=== PATIENT | female | born 1965 | race Caucasian/White ===

== ENCOUNTER 2016-06-05 12:58 | Emergency (ER) | payer BC ==
[~2016-06-05] VITALS: Ht 160 cm; Wt 87.8 kg
[~2016-06-05 12:58] MED LIST: BUPR200T2 PO; CLON1TAB3 PO; CYAN10005 PO; DILT300C29 PO; HYDR-3124 PO; HYDR1TAB2 PO; POLY335040 PO; SIMV40TA2 PO
[2016-06-05 13:10] VITALS: TEMP 36.8; Ht 160 cm; Wt 87.8 kg
--- NOTE | 2016-06-05 14:16 | EMERGENCY ROOM VISIT NOTE ---
History Report prepared by Karolina: Demian Aviles Under the Supervision of: Dr. Garry Fortune D.O. First contact with patient: 14:14 Chief Complaint: OTHER COMPLAINT Stated Complaint: POSSIBLY HAVE MRSA History of Present Illness The patient is a 51 year old female who presents to the Emergency Room with complaints of a worsening rash on the back of her neck for the past month. The patient states that she had this rash, and she kept scratching, and it became more like lesions. The patient additionally states that her ear has been swollen and red, and she states that there has been some drainage. She states there has been some blood coming from the lesions, and she states that there are more lumps on her head, and they hurt to touch. She states that she started taking Bactrim two days ago, and she is on it for ten days. Source of History: patient Onset: a month ago Position: neck Quality: other (rash) Timing: worsening Note: Associated symptoms: Lesions Review of Systems See HPI for pertinent positives & negatives. A total of 10 systems reviewed and were otherwise negative. Past Medical & Surgical Medical Problems: (1) Hyperlipemia Social History Smoking Status: Never Smoker Marital Status: Housing Status: lives with family Occupation Status: disabled Current/Historical Medications Scheduled Aspirin (Aspirin Ec), 81 MG PO QAM Atorvastatin (Lipitor), 80 MG PO HS Carbamazepine (Carbamazepine), 200 MG PO TID Cefdinir (Omnicef), 300 MG PO Q12H Docusate Sodium (Stool Softener), 100 MG PO BID Duloxetine Hcl (Cymbalta), 120 MG PO HS Gabapentin (Neurontin), 300 MG PO TID Lisinopril/Hctz (Zestoretic 20MG/25MG), 1 TAB PO QAM Melatonin (Melatonin), 10 MG PO HS Metformin Hcl (Glucophage Er), 750 MG PO BID Metoprolol Succinate (Toprol Xl), 50 MG PO QAM Mupirocin (Bactroban 2% Oint), 1 APPLN EXT BID Ropinirole (Requip), 3 MG PO QPM Senna (Senokot), 2 TAB PO HS Sulfa/Trimethoprim (Bactrim Ds 800MG/160MG), 1 TAB PO BID Temazepam (Restoril), 30 MG PO HS Scheduled PRN Black Cohosh (Cimicifuga Racem (Black Cohosh Root), 450 MG PO TID PRN for PRN Hydrocortisone 2.5% (Rectal) (Anusol-Hc 2.5%), 1 APPLN TOP BID PRN for PRN Allergies Coded Allergies: Amoxicillin (Unverified Allergy, Unknown, UNKNOWN, 06/05/16) Clavulanic Acid (Unverified Allergy, Unknown, UNKNOWN, 06/05/16) Diclofenac (Unverified Allergy, Unknown, UNKNOWN, 06/05/16) Duloxetine (Unverified Allergy, Unknown, UNKNOWN, 06/05/16) Gabapentin (Unverified Allergy, Unknown, UNKNOWN, 06/05/16) Pregabalin (Unverified Allergy, Unknown, UNKNOWN, 06/05/16) Quetiapine (Unverified Allergy, Unknown, UNKNOWN, 06/05/16) Trazodone (Unverified Allergy, Unknown, UNKNOWN, 06/05/16) Lorazepam (Verified Adverse Reaction, Unknown, AGITATION, 06/05/16) Physical Exam Vital Signs Date Time Temp Pulse Resp B/P Pulse Ox O2 Delivery O2 Flow Rate FiO2 06/05/16 16:06 68 18 122/72 98 06/05/16 14:49 83 18 129/67 93 Room Air 06/05/16 13:10 36.8 91 16 124/78 95 Room Air Physical Exam GENERAL: Patient is awake, alert, and in no acute distress. Patient is resting comfortably and showing no signs of anxiety EYES: The conjunctivae are clear. The pupils are round and reactive. EARS, NOSE, MOUTH AND THROAT: There was significant erythema and swelling in the right outer ear. There was mild desquamation over the lateral right ear. TMs were clear bilaterally. There were small lesions on the scalp in diffuse areas. No fluctuance noted. NECK: The neck is nontender and supple. RESPIRATORY: Normal respiratory effort is noted there is no evidence of wheezing rhonchi or rales CARDIOVASCULAR: Regular rate and rhythm noted there no murmurs rubs or gallops normal S1 normal S2 GASTROINTESTINAL: The abdomen is soft. Bowel sounds are present in all quadrants. Abdomen is nontender MUSCULOSKELETAL/EXTREMITIES: There is no evidence of gross deformity full range of motion is noted in the hips and shoulders SKIN: Pedal edema bilaterally NEUROLOGIC: Patient is awake alert and oriented x3 Medical Decision & Procedures Laboratory Results 06/05/16 14:35 Red Blood Count 5.01, Mean Corpuscular Volume 81.0, Mean Corpuscular Hemoglobin 29.5, Mean Corpuscular Hemoglobin Concent 36.5, Mean Platelet Volume 10.1, Neutrophils (%) (Auto) 67.8, Lymphocytes (%) (Auto) 21.1, Monocytes (%) (Auto) 8.9, Eosinophils (%) (Auto) 1.6, Basophils (%) (Auto) 0.2, Neutrophils # (Auto) 8.17, Lymphocytes # (Auto) 2.55, Monocytes # (Auto) 1.08, Eosinophils # (Auto) 0.19, Basophils # (Auto) 0.03 06/05/16 14:35 Test 06/05/16 14:35 White Blood Count 12.07 K/uL (4.8-10.8) Red Blood Count 5.01 M/uL (4.2-5.4) Hemoglobin 14.8 g/dL (12.0-16.0) Hematocrit 40.6 % (37-47) Mean Corpuscular Volume 81.0 fL (80-100) Mean Corpuscular Hemoglobin 29.5 pg (25-34) Mean Corpuscular Hemoglobin Concent 36.5 g/dl (32-36) Platelet Count 353 K/uL (130-400) Mean Platelet Volume 10.1 fL (7.4-10.4) Neutrophils (%) (Auto) 67.8 % Lymphocytes (%) (Auto) 21.1 % Monocytes (%) (Auto) 8.9 % Eosinophils (%) (Auto) 1.6 % Basophils (%) (Auto) 0.2 % Neutrophils # (Auto) 8.17 K/uL (1.4-6.5) Lymphocytes # (Auto) 2.55 K/uL (1.2-3.4) Monocytes # (Auto) 1.08 K/uL (0.11-0.59) Eosinophils # (Auto) 0.19 K/uL (0-0.5) Basophils # (Auto) 0.03 K/uL (0-0.2) RDW Standard Deviation 38.0 fL (36.4-46.3) RDW Coefficient of Variation 12.7 % (11.5-14.5) Immature Granulocyte % (Auto) 0.4 % Immature Granulocyte # (Auto) 0.05 K/uL (0.00-0.02) Erythrocyte Sedimentation Rate 44 mm/hr (0-21) Anion Gap 10.0 mmol/L (3-11) Est Creatinine Clear Calc Drug Dose 76.8 ml/min Estimated GFR () 85.8 Estimated GFR (Non- 74.0 BUN/Creatinine Ratio 16.8 (10-20) Calcium Level 9.8 mg/dl (8.5-10.1) Total Bilirubin 0.2 mg/dl (0.2-1) Direct Bilirubin < 0.1 mg/dl (0-0.2) Aspartate Amino Transf (AST/SGOT) 47 U/L (15-37) Alanine Aminotransferase (ALT/SGPT) 55 U/L (12-78) Alkaline Phosphatase 100 U/L (45-117) C-Reactive Protein 13.90 mg/dl (0-0.29) Total Protein 7.9 gm/dl (6.4-8.2) Albumin 3.4 gm/dl (3.4-5.0) Laboratory results per my review. Medications Administered Medications (Trade) Dose Ordered Sig/Raghavendra Route Start Time Stop Time Status Last Admin Dose Admin Sodium Chloride (Nss 1000ml) 1,000 ml @ 999 mls/hr Q1H1M STAT IV 06/05/16 14:21 06/05/16 15:21 DC 06/05/16 14:48 999 MLS/HR Ceftriaxone Sodium (Rocephin Inj) 1 gm NOW STAT IV 06/05/16 14:21 06/05/16 14:23 DC 06/05/16 14:48 1 GM ED Course 1414: The patient was evaluated in room A7. A complete history and physical examination were performed. 1421: Rocephin Inj 1gm IV, NSS 1,000 ml @ 999 mls/hr IV 1548: Upon reevaluation, the patient is resting. I discussed the results and treatment plan with her. She verbalized agreement of the treatment plan. She was discharged home. Medical Decision Differential diagnosis: Etiologies such as cellulitis, abscess, MRSA infection, DVT, necrotizing fasciitis, dermatitis, drug eruption, as well as others were entertained. Nursing notes reviewed. The patient is a 51-year-old female who presented to the emergency department for an evaluation of rash on her scalp and redness to her right ear. The patient was started on antibiotics for similar complaints. Her primary care physician did not feel that this was associated with a shingles rash and I agree with that assessment. The patient has had a rash for greater than 72 hours so I do not feel adding antivirals would be helpful at this time. She does appear to have significant erythema to the right ear. She was encouraged to continue using the Bactrim. She was also encouraged to start taking Omnicef and Bactroban ointment. I do feel this appears to be consistent with cellulitis at this time. Her white blood cell count was elevated. I discussed the patient' s laboratory results with her. I do feel that she could be a good candidate for continued outpatient therapy at this time but she was encouraged to follow-up with her primary care physician within the next few days for reevaluation but also return to the emergency department immediately if symptoms change worsen or the need arises. Specifically if she develops high fever severe pain worsening of the redness or if need arises. Impression Primary Impression: Cellulitis of right ear Scribe Attestation The scribe's documentation has been prepared under my direction and personally reviewed by me in its entirety. I confirm that the note above accurately reflects all work, treatment, procedures, and medical decision making performed by me. Departure Information Dispostion Home / Self-Care Prescriptions Cefdinir (Omnicef) 300 Mg Cap 300 MG PO Q12H, #20 CAP Prov: Garry Fortune, DO 06/05/16 Mupirocin (Bactroban 2% Oint) 66 Appln/22 Gm Oint 1 APPLN EXT BID, #60 GM Prov: Garry Fortune, DO 06/05/16 Referrals Sanjeev Baig M.D. (PCP) Forms HOME CARE DOCUMENTATION FORM, IMPORTANT VISIT INFORMATION, WORK / SCHOOL INSTRUCTIONS Patient Instructions Cellulitis Dc, My [facility] Additional Instructions Call your family to schedule a follow-up appointment for this week. Continue all medications as prescribed. Continue using Motrin and Tylenol as directed for mild pain.
[2016-06-05] MEDS ORDERED: SODIUM CHLORIDE 0.9% 1000ML 1,000 ML IV STA (14:21)
[2016-06-05] MEDS ORDERED: CEFTRIAXONE SOD INJ 1 GM ADDVIAL IV STA (14:21)
[2016-06-05 14:52] LABS: BASO % 0.2 %; BASO ABS # 0.03 K/uL (0-0.2); COMPLETE YES; EOS % 1.6 %; HEMATOCRIT 40.6 % (37-47); IG% 0.4 %; LYMPH % 21.1 %; LYMPH ABS # 2.55 K/uL (1.2-3.4); MEAN CORPUSCULAR HEMOGLOBIN 29.5 pg (25-34); MEAN CORPUSCULAR HGB CONC 36.5 g/dl (32-36); MEAN PLATELET VOLUME 10.1 fL (7.4-10.4); MONO % 8.9 %; NEUT % 67.8 %; PLATELET COUNT 353 K/uL (130-400); RED BLOOD COUNT 5.01 M/uL (4.2-5.4); WHITE BLOOD COUNT 12.07 K/uL (4.8-10.8)
[2016-06-05 15:19] LABS: ALKALINE PHOSPHATASE 100 U/L (45-117); ALT/SGPT 55 U/L (12-78); AST/SGOT 47 U/L (15-37); BLOOD UREA NITROGEN 15 mg/dl (7-18); BUN/CREATININE RATIO 16.8 (10-20); CALCIUM 9.8 mg/dl (8.5-10.1); CARBON DIOXIDE 27 mmol/L (21-32); CHLORIDE 95 mmol/L (98-107); CREATININE 0.89 mg/dl (0.60-1.20); GLUCOSE 93 mg/dl (70-99); SODIUM 132 mmol/L (136-145)
[2016-06-05] MEDS ORDERED: TGR200 PO (15:43)
[2016-06-05] MEDS ORDERED: [UNRECOGNIZED DRUG - CODE] PO (15:43)
[2016-06-05] MEDS ORDERED: SULF800T23 PO (15:43)
[2016-06-05] MEDS ORDERED: DULO60CA44 PO (15:43)
[2016-06-05] MEDS ORDERED: MELA1TAB48 PO (15:43)
[2016-06-05] MEDS ORDERED: SENN-61 PO (15:43)
[2016-06-05] MEDS ORDERED: ASPI81TA28 PO (15:43)
[2016-06-05] MEDS ORDERED: METO-217 PO (15:43)
[2016-06-05] MEDS ORDERED: DOCU100T7 PO (15:43)
[2016-06-05] MEDS ORDERED: LISI-788 PO (15:43)
[2016-06-05] MEDS ORDERED: TEMA30CA4 PO (15:43)
[2016-06-05] MEDS ORDERED: ROPI3TAB PO (15:43)
[2016-06-05] MEDS ORDERED: METF750T PO (15:43)
[2016-06-05] MEDS ORDERED: HYDR2.5C37 TOP (15:43)
[2016-06-05] MEDS ORDERED: GABA-113 PO (15:43)
[2016-06-05] MEDS ORDERED: ATOR-26 PO (15:43)
[2016-06-05] MEDS ORDERED: BCTROWC EXT (15:46)
[2016-06-05] MEDS ORDERED: CEFD1CAP14 PO (15:46)
[2016-06-05 16:06] VITALS: BP 122/72; PULSE 68; O2SAT 98
== END 2016-06-05 16:09 | disposition home or self-care (01) ==
LOC: C.EDB 13:00 → C.EDA 16:09
DX: H60.11 Cellulitis of right external ear (principal); E78.5 Hyperlipidemia, unspecified; Z79.82 Long term (current) use of aspirin; Z79.84 Long term (current) use of oral hypoglycemic drugs; Z79.899 Other long term (current) drug therapy; Z88.1 Allergy status to other antibiotic agents; Z88.8 Allergy status to other drugs, medicaments and biological substances

== ENCOUNTER → 2016-06-07 | Outpatient (CLI) | payer BC ==
[~2016-06-07] MED LIST changes: +ASPI81TA28 PO; +ATOR-26 PO; +BCTROWC EXT; -BUPR200T2 PO; +CEFD1CAP14 PO; -CLON1TAB3 PO; -CYAN10005 PO; -DILT300C29 PO; +DOCU100T7 PO; +DULO60CA44 PO; +GABA-113 PO; -HYDR-3124 PO; -HYDR1TAB2 PO; +HYDR2.5C37 TOP; +LISI-788 PO; +MELA1TAB48 PO; +METF750T PO; +METO-217 PO; -POLY335040 PO; +ROPI3TAB PO; +SENN-61 PO; -SIMV40TA2 PO; +SULF800T23 PO; +TEMA30CA4 PO; +TGR200 PO; +[UNRECOGNIZED DRUG - CODE] PO
[2016-06-07 18:22] LABS: URINE APPEARANCE CLEAR (CLEAR); URINE BILIRUBIN NEG (NEG); URINE COLOR YELLOW; URINE EPITHELIAL CELL AUTO >30 /lpf (0-5); URINE NITRITE NEG (NEG); URINE PH 6.5 (4.5-7.5); URINE SPECIFIC GRAVITY 1.014 (1.000-1.030); UROBILINOGEN NEG (NEG); ZZUR CULT IF INDIC CLEAN CATCH NO
[2016-06-07 18:24] LABS: HEMATOCRIT 41.4 % (37-47); MEAN CELL VOLUME 82.8 fL (80-100); MEAN CORPUSCULAR HEMOGLOBIN 28.6 pg (25-34); MEAN CORPUSCULAR HGB CONC 34.5 g/dl (32-36); MEAN PLATELET VOLUME 10.6 fL (7.4-10.4); PLATELET COUNT 423 K/uL (130-400); WHITE BLOOD COUNT 10.78 K/uL (4.8-10.8)
[2016-06-07 18:30] LABS: MANUAL MICROSCOPIC REQUIRED? NO; REVIEW REQ? NO
== END | disposition home or self-care (01) ==
LOC: C.LABMFLN 13:41
PROVIDERS: ATTEND Family Medicine
DX: F31.9 Bipolar disorder, unspecified (principal); E87.6 Hypokalemia; R35.0 Frequency of micturition

== ENCOUNTER → 2016-06-17 | Outpatient (CLI) | payer BC ==
[2016-06-17 18:51] LABS: BASO % 0.3 %; BASO ABS # 0.04 K/uL (0-0.2); COMPLETE YES; EOS % 1.2 %; HEMATOCRIT 43.7 % (37-47); IG% 0.4 %; LYMPH % 21.7 %; LYMPH ABS # 3.13 K/uL (1.2-3.4); MEAN CELL VOLUME 83.7 fL (80-100); MEAN CORPUSCULAR HEMOGLOBIN 28.9 pg (25-34); MEAN CORPUSCULAR HGB CONC 34.6 g/dl (32-36); MEAN PLATELET VOLUME 11.3 fL (7.4-10.4); MONO % 4.2 %; NEUT % 72.2 %; PLATELET COUNT 341 K/uL (130-400); RED BLOOD COUNT 5.22 M/uL (4.2-5.4); WHITE BLOOD COUNT 14.41 K/uL (4.8-10.8)
[2016-06-17 19:49] LABS: POTASSIUM 4.4 mmol/L (3.5-5.1); SODIUM 136 mmol/L (136-145)
[2016-06-17 19:54] LABS: AST/SGOT 16 U/L (15-37)
[2016-06-17 19:56] LABS: ALB/GLOB RATIO 1.1 (0.9-2); ALKALINE PHOSPHATASE 72 U/L (45-117); ALT/SGPT 31 U/L (12-78); AMYLASE 46 U/L (25-115); BLOOD UREA NITROGEN 14 mg/dl (7-18); BUN/CREATININE RATIO 18.3 (10-20); CALCIUM 9.2 mg/dl (8.5-10.1); CARBON DIOXIDE 26 mmol/L (21-32); CHLORIDE 98 mmol/L (98-107); CREATININE 0.79 mg/dl (0.60-1.20); GLUCOSE 111 mg/dl (70-99)
== END | disposition home or self-care (01) ==
LOC: C.LABMFLN 12:29
PROVIDERS: ATTEND Family Medicine
DX: K52.9 Noninfective gastroenteritis and colitis, unspecified (principal); K57.32 Diverticulitis of large intestine without perforation or abscess without bleeding

== ENCOUNTER → 2016-09-10 | Outpatient (CLI) | payer BC ==
[2016-09-10 13:21] LABS: URINE APPEARANCE CLEAR (CLEAR); URINE BILIRUBIN NEG (NEG); URINE COLOR YELLOW; URINE EPITHELIAL CELL AUTO >30 /lpf (0-5); URINE NITRITE NEG (NEG); URINE SPECIFIC GRAVITY 1.022 (1.000-1.030); UROBILINOGEN NEG (NEG)
[2016-09-10 13:22] LABS: MANUAL MICROSCOPIC REQUIRED? NO; REVIEW REQ? NO
[2016-09-10 13:26] LABS: BASO % 0.4 %; BASO ABS # 0.05 K/uL (0-0.2); COMPLETE YES; EOS % 3.7 %; HEMATOCRIT 46.4 % (37-47); IG% 0.4 %; LYMPH % 26.6 %; MEAN CELL VOLUME 88.5 fL (80-100); MEAN CORPUSCULAR HEMOGLOBIN 29.2 pg (25-34); MEAN PLATELET VOLUME 11.3 fL (7.4-10.4); MONO % 8.3 %; NEUT % 60.6 %; PLATELET COUNT 312 K/uL (130-400); RED BLOOD COUNT 5.24 M/uL (4.2-5.4); WHITE BLOOD COUNT 12.41 K/uL (4.8-10.8)
== END | disposition home or self-care (01) ==
LOC: C.LABMFLN 10:09
PROVIDERS: ATTEND Family Medicine
DX: K57.30 Diverticulosis of large intestine without perforation or abscess without bleeding (principal)

== ENCOUNTER → 2016-09-16 | Outpatient (CLI) | payer BC ==
[2016-09-16 18:20] LABS: THYROID STIMULATING HORMONE 2.72 uIu/ml (0.300-4.500)
== END | disposition home or self-care (01) ==
LOC: C.LABMFLN 11:49
PROVIDERS: ATTEND Family Medicine
DX: L65.9 Nonscarring hair loss, unspecified (principal)

== ENCOUNTER → 2017-06-25 | Outpatient (CLI) | payer BC ==
[~2017-06-25] MED LIST changes: -BCTROWC EXT; -CEFD1CAP14 PO
[2017-06-25 13:09] LABS: ALT/SGPT 69 U/L (12-78); BLOOD UREA NITROGEN 12 mg/dl (7-18); CALCIUM 9.3 mg/dl (8.5-10.1); CARBON DIOXIDE 28 mmol/L (21-32); CREATININE 0.83 mg/dl (0.60-1.20); GLUCOSE 152 mg/dl (70-99); POTASSIUM 4.2 mmol/L (3.5-5.1); SODIUM 135 mmol/L (136-145)
[2017-06-25 13:13] LABS: HEMOGLOBIN A1C 8.8 % (4.5-5.6)
[2017-06-25 13:14] LABS: CHOLESTEROL 193 mg/dl (0-200); LDL CHOLESTEROL (DIRECT) 119 mg/dl
[2017-06-25 13:30] LABS: CREATININE RANDOM URINE 78.4 mg/dl
== END | disposition home or self-care (01) ==
LOC: C.LABMFLN 09:41
PROVIDERS: ATTEND Family Medicine
DX: E78.5 Hyperlipidemia, unspecified (principal); I10 Essential (primary) hypertension; E11.9 Type 2 diabetes mellitus without complications

== ENCOUNTER 2024-12-06 06:20 | Inpatient (IN) ==
--- NOTE | 2024-11-08 12:40 | PAT Medication Instructions ---
Medication Instructions Date of Service November 08, 2024 Home Medications Medication Instructions Recorded blood sugar diagnostic #100 ea 05/01/21 blood sugar diagnostic (True #100 ea 12/07/21 Metrix Glucose Test Strip) carvedilol 12.5 mg tablet (Coreg) 12.5 mg PO BID #180 tabs 07/15/23 diltiazem HCl 300 mg 300 mg PO QAM #90 caps 07/15/23 capsule,extended release 24 hr (Cardizem CD) fenofibrate 160 mg tablet 160 mg PO QAM #90 tabs 07/15/23 alcohol swabs (Alcohol Prep Pads) 100 pad topical BID #100 ea 08/12/23 CPAP Supplies #1 ea 09/01/23 pregabalin 50 mg capsule (Lyrica) 50 mg PO BID #60 caps 10/22/23 semaglutide 1 mg/dose (4 mg/3 mL) 1 mg (0.75 mL) subcut .weekly #3 mL 11/27/23 subcutaneous pen injector (Ozempic) pen needle, diabetic 31 gauge x #100 ea 02/03/2408/27" (BD Ultra-Fine Short Pen Needle) Medication List: carvedilol 12.5 mg tablet (Coreg) 12.5 mg PO BID diltiazem HCl 300 mg capsule,extended release 24 hr (Cardizem CD) 300 mg PO QAM fenofibrate 160 mg tablet 160 mg PO QAM pramipexole 1 mg tablet 1 mg PO TID acetaminophen 325 mg tablet (Tylenol) 325 - 975 mg PO QID PRN Pain pregabalin 50 mg capsule (Lyrica) 50 mg PO BID semaglutide 1 mg/dose (4 mg/3 mL) subcutaneous pen injector (Ozempic) 1 mg (0.75 mL) subcut .weekly aspirin 81 mg tablet 81 mg PO QAM cetirizine 10 mg tablet (Zyrtec) 10 mg PO DAILY PRN Allergies duloxetine 40 mg capsule,delayed release 40 mg PO QAM insulin NPH-regular 70-30 U-100 insulin 100 unit/mL subcutaneous pen (Novolin 70-30 FlexPen U-100 Insulin) 70 unit subcut BID metformin 500 mg tablet,extended release 24 hr 100 mg PO BID polyethylene glycol 3350 17 gram/dose oral powder (Miralax) 17 g PO DAILY PRN Constipation quetiapine 50 mg tablet,extended release 24 hr 50 mg PO QAM rosuvastatin 40 mg tablet (Crestor) 40 mg PO QAM vitamin D3 125 mcg (5,000 unit)-vitamin K2 100 mcg capsule 1 cap PO QAM MEDICATION INSTRUCTIONS: ASK your prescriber and surgeon aspirin 81 mg tablet 81 mg PO QAM STOP taking 24 hours before surgery fenofibrate 160 mg tablet 160 mg PO QAM DO NOT take the morning of surgery metformin 500 mg tablet,extended release 24 hr 100 mg PO BID polyethylene glycol 3350 17 gram/dose oral powder (Miralax) 17 g PO DAILY PRN Constipation cetirizine 10 mg tablet (Zyrtec) 10 mg PO DAILY PRN Allergies vitamin D3 125 mcg (5,000 unit)-vitamin K2 100 mcg capsule 1 cap PO QAM Take morning of surgery With a small sip of water, OTHERWISE NOTHING TO EAT OR DRINK AFTER MIDNIGHT: pregabalin 50 mg capsule (Lyrica) 50 mg PO BID pramipexole 1 mg tablet 1 mg PO TID carvedilol 12.5 mg tablet (Coreg) 12.5 mg PO BID duloxetine 40 mg capsule,delayed release 40 mg PO QAM diltiazem HCl 300 mg capsule,extended release 24 hr (Cardizem CD) 300 mg PO QAM acetaminophen 325 mg tablet (Tylenol) 325 - 975 mg PO QID PRN Pain quetiapine 50 mg tablet,extended release 24 hr 50 mg PO QAM rosuvastatin 40 mg tablet (Crestor) 40 mg PO QAM Take evening before surgery pregabalin 50 mg capsule (Lyrica) 50 mg PO BID pramipexole 1 mg tablet 1 mg PO TID carvedilol 12.5 mg tablet (Coreg) 12.5 mg PO BID acetaminophen 325 mg tablet (Tylenol) 325 - 975 mg PO QID PRN Pain metformin 500 mg tablet,extended release 24 hr 100 mg PO BID insulin NPH-regular 70-30 U-100 insulin 100 unit/mL subcutaneous pen (Novolin 70-30 FlexPen U-100 Insulin) 70 unit subcut BID Insulin Dependent Diabetic Patients Test your blood sugar the morning of surgery * If Blood Sugar is GREATER THAN 150, take HALF of your regular dose of: insulin NPH-regular 70-30 U-100 insulin 100 unit/mL subcutaneous pen (Novolin 70-30 FlexPen U-100 Insulin) (35units) * If Blood Sugar is LESS THAN 150, DO NOT TAKE ANY: insulin NPH-regular 70-30 U- 100 insulin 100 unit/mL subcutaneous pen (Novolin 70-30 FlexPen U-100 Insulin) Other Notes As instructed during RN phone call, last dose prior to surgery to be taken on 11/23/24 of: semaglutide 1 mg/dose (4 mg/3 mL) subcutaneous pen injector (Ozempic) 1 mg (0.75 mL) subcut .weekly If you have any questions please call us at [phone] or [phone] or [phone] or [phone]
--- NOTE | 2024-11-15 10:56 | Anesthesiology Consultation ---
Date of Service November 15, 2024 Assessment & Plan (1) Encounter for pre-operative examination: - Check BSG DOS - Infectious disease screening: Per assessment on 11/15/24- No known recent infectious disease contacts or current infectious disease symptoms. - GLP-1 medication instructions: Patient informed by PAT to stop 7 days prior to surgery- voiced understanding. DOS 12/06. Advised last dose to be 11/23. - PCP visit (11/17/24): "Ok for surgery on exam, but pre op testing and labs not available at this time.." - Awaiting final PCP clearance (PCP awaiting preop testing; Dr. Bell/ISA Bowden). Patient otherwise acceptable risk for surgery. Chart Review Chart Review: Patient seen in Pre Admission Testing Teaching & Discussion Pre-Anesthesia Teaching/Discussion Notes: Instructed NPO after midnight before surgery,except medications with 15 cc of water. Medication instructions provided according to the PAT guidelines. History Surgery Operation Date: 12/06/24 07:45 Proposed Procedures p L1-L3 Decompression, T12-S1 Fusion, Hardware Removal L4-S1, with Spinal Cord Monitoring - David Lange, Height/Weight Height: 5 ft 3 in Weight: 107.7 kg Allergies Allergy/AdvReac Type Severity Reaction Status Date / Time capsaicin Allergy Unknown Unknown Verified 11/05/24 11:21 diclofenac Allergy Unknown Unknown Verified 11/05/24 11:21 Diclopak Allergy Unknown UNKNOWN Unverified 06/05/16 15:30 nitrofurantoin Allergy Unknown Unknown Verified 11/05/24 11:21 trazodone Allergy Unknown Unknown Verified 11/05/24 11:21 amitriptyline AdvReac Severe Hallucinations, Verified 11/05/24 11:22 Sleep Walking [facility] AdvReac Intermediate Pancreatiti Verified 11/09/24 14:01 s lisinopril AdvReac Intermediate Cough Verified 11/05/24 11:21 lorazepam AdvReac Intermediate Agitation Verified 11/05/24 11:21 augmentin Allergy Intermediate Hives Uncoded 11/05/24 11:21 Medications Home Medications Medication Instructions Recorded Confirmed Last Taken blood sugar diagnostic #100 ea 05/01/21 09/22/23 Unknown blood sugar diagnostic (True #100 ea 12/07/21 09/22/23 Unknown Metrix Glucose Test Strip) carvedilol 12.5 mg tablet (Coreg) 12.5 mg PO BID #180 tabs 07/15/23 11/05/24 Unknown diltiazem HCl 300 mg 300 mg PO QAM #90 caps 07/15/23 11/05/24 Unknown capsule,extended release 24 hr (Cardizem CD) fenofibrate 160 mg tablet 160 mg PO QAM #90 tabs 07/15/23 11/05/24 Unknown pramipexole 1 mg tablet 1 mg PO TID 07/29/23 11/05/24 Unknown alcohol swabs (Alcohol Prep Pads) 100 pad topical BID #100 ea 08/12/23 11/05/24 Unknown CPAP Supplies #1 ea 09/01/23 09/22/23 Unknown acetaminophen 325 mg tablet 325 - 975 mg PO QID PRN Pain 09/22/23 11/05/24 Unknown (Tylenol) pregabalin 50 mg capsule (Lyrica) 50 mg PO BID #60 caps 10/22/23 11/05/24 Unknown semaglutide 1 mg/dose (4 mg/3 mL) 1 mg (0.75 mL) subcut .weekly #3 mL 11/27/23 11/05/24 11/02/24 subcutaneous pen injector (Ozempic) pen needle, diabetic 31 gauge x #100 ea 02/03/24 Unknown 5/16" (BD Ultra-Fine Short Pen Needle) aspirin 81 mg tablet 81 mg PO QAM 11/05/24 11/05/24 Unknown cetirizine 10 mg tablet (Zyrtec) 10 mg PO DAILY PRN Allergies 11/05/24 11/05/24 Unknown duloxetine 40 mg capsule,delayed 40 mg PO QAM 11/05/24 11/05/24 Unknown release insulin NPH-regular 70-30 U-100 70 unit subcut BID 11/05/24 11/05/24 Unknown insulin 100 unit/mL subcutaneous pen (Novolin 70-30 FlexPen U-100 Insulin) metformin 500 mg tablet,extended 100 mg PO BID 11/05/24 11/05/24 Unknown release 24 hr polyethylene glycol 3350 17 17 g PO DAILY PRN Constipation 11/05/24 11/05/24 Unknown gram/dose oral powder (Miralax) quetiapine 50 mg tablet,extended 50 mg PO QAM 11/05/24 11/05/24 Unknown release 24 hr rosuvastatin 40 mg tablet (Crestor) 40 mg PO QAM 11/05/24 11/05/24 Unknown vitamin D3 125 mcg (5,000 1 cap PO QAM 11/05/24 11/05/24 Unknown unit)-vitamin K2 100 mcg capsule Past Medical History Medical History Acid reflux Asthma Per records, patient denies Bipolar depression Per records, patient denies Coronary artery spasm Diabetes mellitus, type 2 IDDM - Oral - Dexcom Diabetic neuropathy Bilateral Lower Extremity Diverticular disease No recent flares History of blood transfusion "18 years ago" History of COVID-19 12/2020- loss taste, headaches > resolved Hyperlipidemia Hypertension Hyperthyroidism Listed per remote [facility] PCP records Patient denies Iron deficiency anemia Morbid obesity Prinzmetal's angina Scalp psoriasis Sleep apnea CPAP Stroke 06/2019 [facility]) No residuals per patient Urine frequency Urine incontinence Exercise / Class Metabolic Activity III < 4 Walking/Shop/Light housework Past Family History Family History Uncle Myocardial infarction Colorectal cancer Father Myocardial infarction Lung disease Hypertension Stroke Mother Anxiety Bipolar disorder Diabetes Hypertension Sister Hypercholesterolemia Ruptured Burks aneurysm Aunt Breast cancer Denies family history of Ovarian cancer Prostate cancer Past Surgical History Surgical History H/O elbow surgery R/L H/O shoulder surgery Left arthroscopy History of bladder surgery urethral suspension for incontinence and botox injections History of cardiac cath "years ago" and 2021 - No stents History of carpal tunnel release Bilateral History of colonoscopy History of esophagogastroduodenoscopy (EGD) History of lumbar fusion 11/2012 Anisa L4-S1 fusion History of ovarian cystectomy History of salpingectomy History of tonsillectomy and adenoidectomy History of tooth extraction History of tubal ligation Past Anesthesia History No Hx of Anesthesia Complications and No Family Hx of Anesthesia Complications (except granddaughter with post-op nausea) History of PONV No Hx of PONV and Hx of Motion Sickness (Situational) Social History Smoking Status: Former smoker tobacco type: cigarettes Do You Dip or Chew Tobacco: No Smoking End Date: Quit 3 years Hx Alcohol Use: No Hx Substance Use: No substance use type: does not use Review of Systems Patient denies chest pain, shortness of breath, fever, chills, cough, wheezing, palpitations. Physical Exam Vital Signs BP 97/66 P 55 SP02 95%RA RESP 18 Physical Full cervical extension range of motion. Full TMJ range of motion. TMD > 3.5 finger breaths Mallampati Score III Dentition: intact, upper front right permanent "false tooth" Lungs: clear throughout to auscultation Cardiac: regular rate and rhythm, no murmurs noted Spine: normal Carotid arteries: negative bruit Extremities: no LE edema Lab Results Anesthesia Preop Results Results Anesthesia Widget: WBC 9.17 K/ul (4.8-10.8) 11/15/24 Hgb 14.6 g/dl (12.0-16.0) 11/15/24 Hct 44.1 % (37.0-47.0) 11/15/24 Plt 287 K/uL (130-400) 11/15/24 Na 135 mmol/L (136-145) L 11/15/24 K 4.5 mmol/L (3.5-5.1) 11/15/24 Cl 98 mmol/L (98-107) 11/15/24 CO2 32 mmol/L (21-32) 11/15/24 BUN 22 mg/dl (6-23) 11/15/24 Creat 1.13 mg/dl (0.6-1.2) 11/15/24 Glucose Level 76 mg/dl (70-99(Fasting)) 11/15/24 PT 11.4 Seconds (9.0-12.0) 11/15/24 PTT 33 Seconds (21-31) H 11/15/24 INR 1.1 (0.9-1.1) 11/15/24 HA1c 6.8 % (4.5-5.6) H 11/15/24 Urine Color Yellow 11/15/24 Urine Appearance Clear (Clear) 11/15/24 Urine pH 7.0 (4.5-7.5) 11/15/24 Urine Specific [place] 1.016 (1.000-1.030) 11/15/24 Urine Protein 2+ (Negative) H 11/15/24 Urine Glucose (UA) Negative (Negative) 11/15/24 Urine Ketones Negative (Negative) 11/15/24 Urine Blood Negative (Negative) 11/15/24 Urine Nitrite Negative (Negative) 11/15/24 Urine Bilirubin Negative (Negative) 11/15/24 Urine Urobilinogen Negative (Negative) 11/15/24 Urine Leukocyte Esterase 2+ (Negative) H 11/15/24 Urine WBC (Auto) >50 /hpf (0-5) H 11/15/24 Urine RBC (Auto) 0-2 /hpf (0-2) 11/15/24 Urine Hyaline Casts (Auto) 0-2 /lpf (0-2) 11/15/24 Urine Epithelial Cells (Auto) 6-10 /hpf (0-2) H 11/15/24 Urine Bacteria (Auto) 4+ (None Seen) H 11/15/24 Blood Type O Positive 11/15/24 Antibody Screen NEGATIVE 11/15/24 Testing Laboratory Results Surgeon's office made aware of abnormal UA* TSH (05/14/24): 1.99 (WNL) Urine culture (11/15/24): pending Electrocardiogram Date: 11/15/24 SB at 56bpm. "Otherwise normal ECG" Chest X-Ray Date: 11/15/24 Heart: Cardiothoracic ratio is borderline. Needs Echo correlation if clinically indicated. (Echo was done 09/2023; preop testing including CXR forwarded to PCP) IMPRESSION: No acute pleuropulmonary pathology seen. Echocardiogram Date: 09/19/23 LVEF 55-59%. No LV segmental wall motion abnormalities. No significant valvular disease present. Mildly increased (concentric) wall thickness. Stress Test Date: 05/11/21 Moderate perfusion defect in the anterior wall that is slightly worse at stress. Possible attenuation artifact but jovanny-infarct/infarct ischemia cannot be ruled out. LVEF 60%. Subsequent cardiac cath performed* Cardiac Catheterization Date: 05/23/21 Coronary angiography: Selective injections of the left coronary artery revealed the left main trunk to be short but widely patent. The left circumflex artery is hyperdominant giving off several marginal branches as well as the PDA. The left circumflex system is widely patent. The LAD extends only to the apex of the heart. The LAD gives off several small to medium size diagonal branches. The LAD system is widely patent. Injections into the right coronary artery reveal it to be small and nondominant. The right coronary artery is widely patent. Summary: The patient has widely patent coronary anatomy.
[2024-12-06] MEDS: LR 60ML/HR IV SCH (06:49)
[2024-12-06] MEDS: LR 15ML/HR IV SCH (06:49)
[2024-12-06] MEDS: ACETAMINOPHEN 500 MG TAB PO SCH (06:50)
[2024-12-06] MEDS: GABAPENTIN 600 MG DOSE PO SCH (06:50)
[2024-12-06] MEDS: CeleBREX 200 MG CAP PO SCH (07:11)
[2024-12-06] MEDS ORDERED: GLYCOPYRROLATE 0.2 MG/ML VIAL ONE (07:23)
[2024-12-06] MEDS ORDERED: ROCURONIUM BROMIDE 10 MG/ML 5 ML VIAL IV ONE (07:23)
[2024-12-06] MEDS ORDERED: ONDANSETRON INJ 2 MG/ML 2 ML VIAL ONE (07:23)
[2024-12-06] MEDS ORDERED: PROPOFOL IV EMULSION 10 MG/ML 20 ML VIAL IV ONE (07:23)
[2024-12-06] MEDS ORDERED: MIDAZOLAM HCL 1 MG/ML 2ML VIAL ONE (07:23)
[2024-12-06] MEDS ORDERED: LIDOCAINE 2% 2 ML VIAL/AMP(20MG/ML) INFIL ONE (07:23)
[2024-12-06] MEDS ORDERED: DEXAMETHASONE SOD INJ 4 MG/ML VIAL ONE (07:23)
[2024-12-06] MEDS ORDERED: SUGAMMADEX SODIUM 200 MG/2 ML VIAL IV ONE (07:25)
[2024-12-06] MEDS ORDERED: KETAMINE HCL 10MG/ML SYR ONE (07:29)
[2024-12-06] MEDS ORDERED: PROMETHAZINE HCL 6.25 MG in SODIUM CHLORIDE 0.9% 50 ML IV PRN (07:35)
[2024-12-06] MEDS ORDERED: HYDROmorphone INJ 1 MG/ML SYRINGE IV PRN (07:35)
[2024-12-06] MEDS ORDERED: ONDANSETRON INJ 2 MG/ML 2 ML VIAL IV PRN ×2 (07:35→12:55)
[2024-12-06] MEDS ORDERED: ATROPINE SULFATE 0.1 MG/ML 10ML SYR IV PRN (07:35)
[2024-12-06] MEDS ORDERED: NALOXONE HCL 0.4 MG/1 ML VIAL/CARP IV PRN ×2 (07:35→12:55)
[2024-12-06] MEDS ORDERED: FLUMAZENIL 0.1 MG/1 ML 10 ML VIAL IV PRN (07:35)
--- NOTE | 2024-12-06 07:41 | History & Physical Bridge Note ---
Date of Service December 06, 2024 History & Physical Bridge Note I have examined the patient, reviewed the History & Physical and in the interval since the performance of the History & Physical I have noted the following changes of clinical significance: no changes noted
--- NOTE | 2024-12-06 07:42 | Orthopedic Progress Note ---
Date of Service December 06, 2024 Assessment & Plan (1) Other spondylosis with radiculopathy, lumbar region: Plan: L1-L3 decompression, T12-S1 fusion, hardware removal L4-S1 Subjective Back and leg pain Physical Exam Physical Exam: Patient is alert and oriented heart regular rhythm Lungs clear Results & Data Vital Signs (Past 12 Hours) Vital Signs Temp Pulse Resp BP Pulse Ox O2 Del Method 12/06/24 06:38 36.5 C 83 16 125/84 94 Room Air
[2024-12-06] MEDS: BUPIVACAINE/EPINEPHRINE 0.25% 1:200,000 30 ML VIAL ONE (08:21)
[2024-12-06] MEDS ORDERED: VASOPRESSIN 20 UNIT/ML VIAL ONE (08:54)
[2024-12-06] MEDS ORDERED: ALBUMIN HUMAN 5% 12.5 GM/250 ML VIAL IV ONE (09:14)
[2024-12-06] MEDS ORDERED: NOREPINEPHRINE BITARTRATE 1 MG/ML 4 ML VIAL IV ONE (09:19)
[2024-12-06] MEDS: ceFAZolin 330 MG/ML 1 GM VIAL ONE ×2 (09:44→10:23)
[2024-12-06] MEDS: FLOSEAL HEMOSTATIC MATRIX 10ML TOP ONE (10:22)
--- NOTE | 2024-12-06 10:37 | Operative Report ---
Post Operative Report Pre & Post Diagnosis Operation Date: 12/06/24 07:45 Pre-Op Diagnosis: #1 lumbar spondylosis with radiculopathy #2 lumbar spinal stenosis with epidural lipomatosis Post-Op Diagnosis: Same I identified the patient and participated in the time-out.: Yes Procedure Operation Date: 12/06/24 07:45 Actual Procedures #1 removal of posterior instrumentation L4-S1. #2 exploration of fusion L4-S1. #3 lumbar decompression with bilateral medial facetectomies and foraminotomies T12-L1, L1-L2, L2-L3 and L3-L4. #4 posterior spinal fusion T12-L4. #5 placed posterior segmental instrumentation T12-S1 using camber. #6 interbody fusion L3-L4. #7 placement spiraling by 26 mm at L3-L4. #8 placement locally harvested morselized autograft and posterior gutters. #9 placement of Koros combined with Proteus in the posterior lateral gutters and os design interbody space. #10 application of versa wrap of the exposed dura. Surgeon David Lange, DO Theater Set Production Designer Carito Dickinson Estimated Blood Loss 550 Findings See Below The patient is 5 foot 3 weighing over 108 kg with a BMI in excess of 42. The patient's body image did contribute to significant technical difficulty with positioning exposure and the procedure itself. This at least 50% increased operative time. I recommend a modifier 22. Specimens None Indications This is a 59-year-old female who presents from his diagnosis after failing course of nonoperative care is here for surgical invention. Description of Procedure Patient was met with identified informed consent obtained. Patient was then taken to the operative suite underwent intubation placed in the prone position on the Steve table on top of the Stalin frame. All bony prominences well- padded eyes inspected to ensure no external pressure placed upon them. This point the lumbar spine was prepped and draped in normal sterile fashion. Sharp dissection with the assistance of Bovie cautery was performed down to and exposing the lamina transverse processes of T12 L1-L2-L3 and the instrumentation L4-L5 and S1 levels bilaterally. And then proceeded to remove the hardware bilaterally explored the fusion mass noting it to be mature and intact. Then performed a complete laminectomy of L3 L2 L1 and partial laminectomy of T12 including bilateral medial facetectomies and foraminotomies addressing all neural compression. Pedicle screws were then placed in T12-L1 L2-L3-L4 and the S1 levels bilaterally with the assistance of fluoroscopy and appropriate sized rods contoured and placed. By way of transforaminal approach on the left a complete discectomy of L3-L4 was performed endplates guided to subcortically bone and 11 x 26 mm spiral cage filled with os design bone graft tapped in position. The rods were then locked in 5 position. The transverse processes of T12-L1 L2-L3-L4 burred to subcortical being bone. Proteus combined with Koros and local autograft placed in posterior gutters. Versa wrap placed of exposed dura. 15 round THUY drain inserted. The incision was then closed with 1 Vicryl the fascia 2-0 Vicryl subcutaneously and 4 Monocryl for final skin closure. Steri-Strips sterile dressing placed. Patient waken taken to PACU in stable condition. Please note Carito Dickinson was present entire procedure and on the patient positioning complex portion of the surgery and final skin closure. I attest to the content of the Intraoperative Record and any orders documented therein. Any exceptions are noted below.
--- NOTE | 2024-12-06 10:50 | Fluoroscopy Report ---
FL lumbar spine 2-3V CLINICAL HISTORY: L1-L3 DECOMP T12-S1 FUSION COMPARISON STUDY: Radiographs 11/25/2012 FLUOROSCOPY TIME: 30.3 seconds FLUOROSCOPY IMAGES: 3 EXPOSURE DOSE: 28.37 mGy FINDINGS: Posterior interbody avelina and screw fusion hardware is noted at what appears to be the T12-S1 levels. Discectomy changes are noted at what appears to be the L3-L4 and L5-S1 levels. Interval da grey of the L5 pedicle screws. Hardware appears intact. Possible surgical sponge on image 4 adjacent t o the T12 hardware. A catheter projects over the right abdomen. Note that the images were submitted f ollowing completion of the surgery. IMPRESSION: Fluoroscopic assistance as above. ACT 112: Negative or not required by law. Electronically signed by: Nixon Begum M.D. 12/06/2024 10:49 AM
[2024-12-06] MEDS ORDERED: METHYLENE BLUE 0.5% 10 ML VIAL ONE (11:06)
--- NOTE | 2024-12-06 12:26 | Anesthesiology Progress Note ---
Date of Service December 06, 2024 Anesthesia Post Procedure Vital Signs Vital Signs: Temp Pulse Resp BP Pulse Ox O2 Del Method O2 Flow Rate 12/06/24 12:20 82 20 101/56 L 96 Nasal Cannula 2 12/06/24 12:10 83 17 90/57 L 94 Nasal Cannula 2 12/06/24 12:00 36.5 C 87 16 92/58 L 97 Nasal Cannula 2 12/06/24 11:50 86 14 95/51 L 97 Nasal Cannula 2 12/06/24 11:40 87 17 103/57 L 94 Nasal Cannula 2 12/06/24 11:30 90 18 106/56 L 98 Oxymask 6 12/06/24 11:20 89 24 98/63 L 97 Oxymask 9 12/06/24 11:10 86 20 90/67 L 94 Oxymask 9 12/06/24 11:00 87 20 94/62 L 92 Oxymask 10 12/06/24 10:55 67 18 84/47 L 90 Oxymask 10 12/06/24 10:54 36.2 C L 65 18 78/48 L 89 L Oxymask 10 12/06/24 06:38 36.5 C 83 16 125/84 94 Room Air Pain Intensity Back: Pain Intensity: 6 Transfer of Care Handoff Completed per policy Notes Mental Status: alert / awake / arousable Patient Amnestic to Procedure: Yes Nausea / Vomiting: adequately controlled Pain: adequately controlled Airway Patency, RR, SpO2: stable & adequate BP & HR: stable & adequate Hydration State: stable & adequate Anesthetic Complications: no major complications apparent
[2024-12-06] MEDS ORDERED: METOCLOPRAMIDE HCL INJ 5 MG/ML 2 ML VIAL IV PRN (12:55)
[2024-12-06] MEDS ORDERED: FAMOTIDINE 20 MG TAB PO PRN (12:55)
[2024-12-06] MEDS ORDERED: DO NOT ADMINISTER FLU VACCINE PRN (12:55)
[2024-12-06] MEDS ORDERED: MAGNESIUM HYDROXIDE SUSP 30 ML UDC PO PRN (12:55)
[2024-12-06] MEDS ORDERED: ONDANSETRON 4 MG OD TAB PO PRN (12:55)
[2024-12-06] MEDS ORDERED: ALUMINUM/MAGNESIUM SUSP 30 ML UDC PO PRN (12:55)
[2024-12-06] MEDS ORDERED: LORazepam 0.5 MG TAB PO PRN (12:55)
[2024-12-06] MEDS ORDERED: DO NOT ADMINISTER PNEUMOCOCCAL VACCINE PRN (12:55)
[2024-12-06] MEDS ORDERED: ACETAMINOPHEN 1,000 MG/100 ML VIAL IV PRN (12:55)
[2024-12-06] MEDS ORDERED: diphenhydrAMINE Capsule 25 MG CAP PO PRN (12:55)
[2024-12-06] MEDS ORDERED: PROMETHAZINE 12.5 MG/50.5 ML BAG IV PRN (12:55)
[2024-12-06] MEDS ORDERED: CETIRIZINE HCL 10 MG TABLET PO PRN (12:55)
[2024-12-06] MEDS ORDERED: HYDROmorphone INJ 0.5 MG/0.5 ML SYR IV PRN (12:55)
[2024-12-06] MEDS ORDERED: PHARMACY GLYCEMIC MGMT CONSULT PRN (12:55)
[2024-12-06] MEDS ORDERED: SOD PHOSPHATE/SOD BIPHOSPHATE ENEMA 132 ML BTL PR PRN (12:55)
[2024-12-06] MEDS: LACTATED RINGER'S 1,000 ML IV SCH (13:03)
--- NOTE | 2024-12-06 13:35 | Consultation ---
<Statement entered by Michel Leary, DO - 12/06/24 16:17> patient seen and examined See below for full details In addition, she was requiring 2L NC in the immediate post op period. lungs are clear. she does endorse a non productive cough x 4 days. no SOB, wheezing. Continue frequent incentive spirometry, personally instructed patient on use. if still requiring O2 tomorrow, check CXR. Date of Consultation December 06, 2024 Assessment & Plan (1) Other spondylosis with radiculopathy, lumbar region: Patient is a 59F with a past medical history significant for HTN, Type II DM, hyperlipidemia, h/o ischemic stroke, tobacco use d/o, ROBBIN, obesity, spinal stenosis lumbar region who presents with post-surgical medical care s/p posterior instrumentation removal at L4-S1, lumbar decompression with bilateral medial facetectomies and foraminotomies T12-L4, posterior spinal fusion T12-L4, posterior segmental instrumentation T12-S1, and interbody fusion L3-L4 with Dr. Lange today. Lumbar spondylosis with radiculopathy s/p laminectomy * POD#0 s/p lumbar decompression and fusion with instrumentation T12-S1 with Dr. Lange. * EBL: 550 ml +; pre-op Hgb 14 * IV Cefazolin post-op x 3doses; Decadron daily per Ortho * Pain control w/ Tylenol, Oxy, Dilaudid as needed * Continue IV fluid replacement w LR at 60 ml/hr * Clear diet for now and advance as tolerated * Wound care per ortho * Continue home aspirin per Ortho order-> patient did not stop prior to surgery * Monitor H&H with AM labs- ordered * Incentive spirometry Q1H while awake * PT/OT when appropriate- ambulates independently at home * Discharge planning- anticipate d/c to home with family support #Hypetension * Goal BP 130/80; now 110's/60's * Hold home Losartan, Carvedilol, diltiazem for now d/t soft BP's post-op and resume when able #Diabetes Type II, insulin-dependent * SSI while inpatient with goal bsg 110-140-> may need to adjust insulin while on steroids * A1C 8% * Hold home insulin 70/30 and metformin while inpatient-> resume OP #Hypercholesterolemia #H/o stroke ~2013 * Continue home statin * Continue home aspirin per ortho #ROBBIN * Continue home CPAP DVT Ppx: SCD's Code status: Full PCP: Dina Jeff PA-C Dispo: Admit post-operatively for further management Patient seen in collaboration with Dr. Leary. Please see addendum.I spent a total of 35 minutes coordinating, documenting and providing care for this patient excluding time spent in the performance of separately billed services or time spent by another provider/QHP. (2) Benign essential hypertension: (3) Controlled diabetes mellitus: (4) Hypercholesterolemia: (5) Sleep apnea: History of Present Illness Attending Physician: David Lange, DO History of Present Illness Patient is a 59F with a past medical history significant for HTN, Type II DM, hyperlipidemia, h/o ischemic stroke, former tobacco, ROBBIN, obesity, spinal stenosis lumbar region who presents with post-surgical medical care s/p posterior instrumentation removal at L4-S1, lumbar decompression with bilateral medial facetectomies and foraminotomies T12-L4, posterior spinal fusion T12-L4, posterior segmental instrumentation T12-S1, and interbody fusion L3-L4 with Dr. Lange today. Patient reports feeling fine since surgery. Denies shortness of breath, chest pain, numbness, tingling, weakness, abdominal pain, N/V/D. Reports having a cough 4-5 days prior to surgery. Denies fever or shortness of breath, ambulation difficulty at home. Thank you for this consultation. We will follow the patient with you during their hospital stay. You can reach a [facility] via [employer]. Allergies Allergy/AdvReac Type Severity Reaction Status Date / Time amoxicillin [From Augmentin] Allergy Severe Hives Verified 12/06/24 07:39 clavulanic acid Allergy Severe Hives Verified 12/06/24 07:39 [From Augmentin] capsaicin Allergy Unknown Rash Verified 12/06/24 06:30 diclofenac Allergy Unknown Rash Verified 12/06/24 06:30 Diclopak Allergy Unknown UNKNOWN Unverified 06/05/16 15:30 nitrofurantoin Allergy Unknown Rash Verified 12/06/24 06:30 trazodone Allergy Unknown Rash Verified 12/06/24 06:30 amitriptyline AdvReac Severe Hallucinations, Verified 12/06/24 06:30 Sleep Walking dulaglutide [From Trulicity] AdvReac Intermediate Pancreatiti Verified 12/06/24 06:30 s lisinopril AdvReac Intermediate Cough Verified 12/06/24 06:30 lorazepam AdvReac Intermediate Agitation Verified 12/06/24 06:30 Home Medications Medication Instructions Recorded Confirmed Type blood sugar diagnostic #100 ea 05/01/21 09/22/23 Rx blood sugar diagnostic (True #100 ea 12/07/21 09/22/23 Rx Metrix Glucose Test Strip) carvedilol 12.5 mg tablet (Coreg) 12.5 mg PO BID #180 tabs 07/15/23 12/06/24 Rx diltiazem HCl 300 mg 300 mg PO QAM #90 caps 07/15/23 12/06/24 Rx capsule,extended release 24 hr (Cardizem CD) fenofibrate 160 mg tablet 160 mg PO QAM #90 tabs 07/15/23 12/06/24 Rx pramipexole 1 mg tablet 1 mg PO TID 07/29/23 12/06/24 History alcohol swabs (Alcohol Prep Pads) 100 pad topical BID #100 ea 08/12/23 12/06/24 Rx CPAP Supplies #1 ea 09/01/23 09/22/23 Rx acetaminophen 325 mg tablet 325 - 975 mg PO QID PRN Pain 09/22/23 12/06/24 History (Tylenol) pregabalin 50 mg capsule (Lyrica) 50 mg PO BID #60 caps 10/22/23 12/06/24 Rx semaglutide 1 mg/dose (4 mg/3 mL) 1 mg (0.75 mL) subcut .weekly #3 mL 11/27/23 12/06/24 Rx subcutaneous pen injector (Ozempic) pen needle, diabetic 31 gauge x #100 ea 02/03/24 Rx 5/16" (BD Ultra-Fine Short Pen Needle) aspirin 81 mg tablet 81 mg PO QAM 11/05/24 12/06/24 History cetirizine 10 mg tablet (Zyrtec) 10 mg PO DAILY PRN Allergies 11/05/24 12/06/24 History duloxetine 40 mg capsule,delayed 40 mg PO QAM 11/05/24 12/06/24 History release insulin NPH-regular 70-30 U-100 70 unit subcut BID 11/05/24 12/06/24 History insulin 100 unit/mL subcutaneous pen (Novolin 70-30 FlexPen U-100 Insulin) metformin 500 mg tablet,extended 100 mg PO BID 11/05/24 12/06/24 History release 24 hr polyethylene glycol 3350 17 17 g PO DAILY PRN Constipation 11/05/24 12/06/24 History gram/dose oral powder (Miralax) quetiapine 50 mg tablet,extended 50 mg PO QAM 11/05/24 12/06/24 History release 24 hr rosuvastatin 40 mg tablet (Crestor) 40 mg PO QAM 11/05/24 12/06/24 History vitamin D3 125 mcg (5,000 1 cap PO QAM 11/05/24 12/06/24 History unit)-vitamin K2 100 mcg capsule Patient History Medical History Morbid obesity Scalp psoriasis Urine incontinence Urine frequency History of blood transfusion "18 years ago" Hyperthyroidism Listed per remote [facility] PCP records Patient denies Hyperlipidemia Diabetic neuropathy Bilateral Lower Extremity Coronary artery spasm Prinzmetal's angina Hypertension Diverticular disease No recent flares Acid reflux Diabetes mellitus, type 2 IDDM - Oral - Dexcom Bipolar depression Per records, patient denies Asthma Per records, patient denies Stroke 06/2019 ([facility]) No residuals per patient Sleep apnea CPAP History of COVID-19 12/2020- loss taste, headaches > resolved Iron deficiency anemia Surgical History History of tooth extraction History of esophagogastroduodenoscopy (EGD) History of colonoscopy History of cardiac cath "years ago" and 2021 - No stents History of bladder surgery urethral suspension for incontinence and botox injections History of tubal ligation History of tonsillectomy and adenoidectomy H/O shoulder surgery Left arthroscopy History of salpingectomy History of ovarian cystectomy History of carpal tunnel release Bilateral History of lumbar fusion 11/2012 Anisa L4-S1 fusion H/O elbow surgery R/L Family History Uncle Myocardial infarction Colorectal cancer Father Myocardial infarction Lung disease Hypertension Stroke Mother Anxiety Bipolar disorder Diabetes Hypertension Sister Hypercholesterolemia Ruptured Burks aneurysm Aunt Breast cancer Denies family history of Ovarian cancer Prostate cancer Social History Smoking Status: Former smoker packs per day: 1; Smoking End Date: Quit 3 years; Second Hand Exposure: No; Do You Dip or Chew Tobacco: No; Tobacco Cessation Education Requested by Patient: No Hx Alcohol Use: No Hx Substance Use: No Preferred Language: Telugu Communication Ability: Effective Visual Impairment: Partially Limited Hearing Ability: Normal Sports Umpire Required: No Beliefs That Will Affect Care: None marital status: Current Living Situation: Spouse Current Living Situation Comment: spouse and 2 grand children current occupational status: employed and disabled 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 WEIGHT/BMI reviewed. GEN: Obese, well-developed, NAD. PSYCH: Good Judgment. AOx4. Normal memory, mood, and affect. HEENT -Head: NC/AT; -Eyes: PERRL, EOMI. No discharge or redn ess; -Ears: External ears are normal. -Nose: Normal nares. -Mouth and throat: Dry mucous membranes, Normal gums, mucosa, palate,. Good dentition. NECK: Supple, with no masses. CV: RRR, no m/r/g. Pulses strong, No peripheral swelling, LUNGS: Mildly diminished to bases, nonproductive, wet cough with deep breathing, O2 sats 93% with 3 LPM O2 ABD: Soft, NT/ND, NBS, no masses or organomegaly. : richards intact with pos output SKIN: Warm, well perfused. No skin rashes or abnormal lesions. lumbar drsg intact and clean, bloody drainage to THUY MSK: No deformities, Normal gait. EXT: No clubbing, cyanosis, or edema. NEURO: CN II-XII grossly intact, Strength 4/5 BLE, No focal deficits. Results & Data Vital Signs (Past 12 Hours) Vital Signs Temp Pulse Pulse Resp BP BP Pulse Ox 12/06/24 12:56 36.6 C 79 16 99/60 L 92 12/06/24 12:35 82 15 103/58 L 97 12/06/24 12:20 82 20 101/56 L 96 12/06/24 12:10 83 17 90/57 L 94 12/06/24 12:00 36.5 C 87 16 92/58 L 97 12/06/24 11:50 86 14 95/51 L 97 12/06/24 11:40 87 17 103/57 L 94 12/06/24 11:30 90 18 106/56 L 98 12/06/24 11:20 89 24 98/63 L 97 12/06/24 11:10 86 20 90/67 L 94 12/06/24 11:00 87 20 94/62 L 92 12/06/24 10:55 67 18 84/47 L 90 12/06/24 10:54 36.2 C L 65 18 78/48 L 89 L 12/06/24 06:38 36.5 C 83 16 125/84 94 O2 Del Method O2 Flow Rate 12/06/24 12:56 Nasal Cannula 3 12/06/24 12:35 Nasal Cannula 2 12/06/24 12:20 Nasal Cannula 2 12/06/24 12:10 Nasal Cannula 2 12/06/24 12:00 Nasal Cannula 2 12/06/24 11:50 Nasal Cannula 2 12/06/24 11:40 Nasal Cannula 2 12/06/24 11:30 Oxymask 6 12/06/24 11:20 Oxymask 9 12/06/24 11:10 Oxymask 9 12/06/24 11:00 Oxymask 10 12/06/24 10:55 Oxymask 10 12/06/24 10:54 Oxymask 10 12/06/24 06:38 Room Air Diagnostic Findings Lumbar Spine X-Ray 12/06/24 07:45 FL lumbar spine 2-3V CLINICAL HISTORY: L1-L3 DECOMP T12-S1 FUSION COMPARISON STUDY: Radiographs 11/25/2012 FLUOROSCOPY TIME: 30.3 seconds FLUOROSCOPY IMAGES: 3 EXPOSURE DOSE: 28.37 mGy FINDINGS: Posterior interbody avelina and screw fusion hardware is noted at what appears to be the T12-S1 levels. Discectomy changes are noted at what appears to be the L3-L4 and L5-S1 levels. Interval removal of the L5 pedicle screws. Hardware appears intact. Possible surgical sponge on image 4 adjacent to the T12 hardware. A catheter projects over the right abdomen. Note that the images were submitted following completion of the surgery. IMPRESSION: Fluoroscopic assistance as above. ACT 112: Negative or not required by law. Electronically signed by: Nixon Begum M.D. 12/06/2024 10:49 AM
[2024-12-06] MEDS: PRAMIPEXOLE DIHYDROCHLO 0.5 MG TAB PO SCH (13:53)
[2024-12-06] MEDS: LANTUS PER UNIT CHARGE SC ONE (14:26)
[2024-12-06] MEDS: INSULIN ASPART PER UNIT CHARGE SC SCH (14:27)
--- NOTE | 2024-12-06 15:10 | Pharmacy Report ---
Pharmacy Glycemic Short Note 2 - Date of Service December 06, 2024 - Glycemic Short BSG Results (Last 24 hours): 12/06/24 12/06/24 12/06/24 06:30 11:01 13:52 POC Glucose 148 H 180 H 121 H OUTPATIENT ANTIDIABETIC REGIMEN: * Novolin 70/30 - 70 units bid, metformin 1 gm bid, ozempic ASSESSMENT: * 59 year old s/p surgery, POD 0 - pharmacy consulted for glycemic management. Postop BSG 180 mg/dL - did receive IV steroids intraoperatively in OR. 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 Will give an additional 15 units x 1 of Lantus now to cover steroids. Will add on scale for basal at HS PLAN FOR INPATIENT GLYCEMIC CONTROL: * Hold outpatient oral diabetes medications * Basal insulin * Lantus 15 units x1, then Lantus 10-20 units HS * Bolus insulin * NovoLog per scale ACHS or Q6hrs while NPO * Goal Range: Low 110 mg/dL - High 140 mg/dL * Correction Factor: 12 mg/dL/unit * Nutritional / Prandial insulin per carb ratio of 1 unit per 4 grams CHO consumed
[2024-12-06] MEDS: ACETAMINOPHEN 500 MG TAB PO PRN (18:16)
[2024-12-06] MEDS: LANTUS PER UNIT CHARGE SC SCH (21:01)
[2024-12-06] MEDS: DOCUSATE SODIUM/SENNA 50/8.6MG TAB PO SCH (21:01)
[2024-12-06] MEDS: PREGABALIN 50 MG CAP PO SCH (21:01)
[2024-12-07] MEDS: HYDROmorphone INJ 1 MG/ML SYRINGE IV PRN (00:05)
[2024-12-07] MEDS: INSULIN ASPART PER UNIT CHARGE SC SCH (00:05)
[2024-12-07] MEDS: POLYETHYLENE (MIRALAX) 17 GM PACK PO SCH (05:39)
[2024-12-07 08:09] LABS: Hematocrit (blood only) 32.7 % (37.0-47.0); Hemoglobin 10.6 g/dl (12.0-16.0); Immature Granulocytes # (auto) 0.09 K/uL (0.01-0.20); Immature Granulocytes % (auto) 0.5 %; Mean Corpuscular Hemoglobin 27.5 pg (25.0-34.0); Mean Corpuscular Volume 84.7 fL (80.0-100.0); Platelet Count 236 K/uL (130-400); RDW Standard Deviation 43.1 fL (36.4-46.3); Red Blood Count 3.86 M/uL (4.20-5.40); White Blood Count 16.90 K/ul (4.8-10.8)
[2024-12-07 08:31] LABS: Anion Gap 6.0 (3-11); Blood Urea Nitrogen 20.0 mg/dl (6-23); Calcium 8.9 mg/dl (8.6-10.3); Carbon Dioxide 33.0 mmol/L (21-32); Chloride 96.0 mmol/L (98-107); Creatinine Clr Calc Pharmacy 69.1 ml/min; Glucose 190.0 mg/dl (70-99(Fasting)); Potassium 4.2 mmol/L (3.5-5.1); Sodium 135.0 mmol/L (136-145)
[2024-12-07] MEDS: LANTUS PER UNIT CHARGE SC SCH ×2 (08:49→21:13)
[2024-12-07] MEDS: dexAMETHasone 6 MG in SYRINGE 0 ML IV SCH (08:50)
[2024-12-07] MEDS: ROSUVASTATIN CALCIUM 20 MG TAB PO SCH (08:56)
[2024-12-07] MEDS: FENOFIBRATE NANOCRYSTALLIZED 145 MG TABLET PO SCH (08:58)
[2024-12-07] MEDS: ASPIRIN 81 MG ECTAB PO SCH (08:58)
[2024-12-07] MEDS ORDERED: LANTUS PER UNIT CHARGE SC SCH (09:00)
--- NOTE | 2024-12-07 11:51 | Hospitalist Progress Note ---
Date of Service December 07, 2024 Assessment & Plan (1) Other spondylosis with radiculopathy, lumbar region: Plan: Patient is a 59F with a past medical history significant for HTN, Type II DM, hyperlipidemia, h/o ischemic stroke, tobacco use d/o, ROBBIN, obesity, spinal stenosis lumbar region who presents with post-surgical medical care s/p posterior instrumentation removal at L4-S1, lumbar decompression with bilateral medial facetectomies and foraminotomies T12-L4, posterior spinal fusion T12-L4, posterior segmental instrumentation T12-S1, and interbody fusion L3-L4 with Dr. Lange 12/06 Lumbar spondylosis with radiculopathy s/p laminectomy Acute blood loss anemia: likely dilutional and operative blood loss. Hb today is 10.6. no indication for blood transfusion currently. * POD#1 s/p lumbar decompression and fusion with instrumentation T12-S1 with Dr. Lange. * EBL: 550 ml +; pre-op Hgb 14 * IV Cefazolin post-op x 3doses; Decadron daily per Ortho * Pain control w/ Tylenol, Oxy, Dilaudid as needed * Wound care per ortho recs * Continue home aspirin per Ortho order-> patient did not stop prior to surgery * Monitor H&H with AM labs- ordered * Incentive spirometry Q1H while awake * PT/OT when appropriate- ambulates independently at home * Discharge planning- anticipate d/c to home with family support #Hypetension * Goal BP 130/80; now 110's/60's * c/w home Carvedilol, diltiazem cautiously w/ hold parameters. #Diabetes Type II, insulin-dependent * SSI while inpatient with goal bsg 110-140-> may need to adjust insulin while on steroids * A1C 6.8% * Hold home insulin 70/30 and metformin while inpatient-> resume OP #Hypercholesterolemia #H/o stroke ~2013 * Continue home statin * Continue home aspirin per ortho #ROBBIN * Continue home CPAP DVT Ppx: SCD's Code status: Full PCP: Dina Jeff PA-C (2) Benign essential hypertension: (3) Controlled diabetes mellitus: (4) Hypercholesterolemia: (5) Sleep apnea: Admission and Anticipated Discharge Date Admission Date: December 06, 2024 Subjective Patient was seen and examined at bedside. Patient was sitting up in chair, on 4 L oxygen via nasal cannula, NAD. Patient reports BLE radicular symptoms improvement, reports operative site pain under control. Patient denies moving bowel or gas, denies abdominal pain. Tolerating diet well. Physical Exam Physical Exam: GEN: Obese, well-developed, NAD. PSYCH: Good Judgment. AOx4. Normal memory, mood, and affect. HEENT -Head: NC/AT; -Eyes: PERRL, EOMI. No discharge or redn ess; -Ears: External ears are normal. -Nose: Normal nares. -Mouth and throat: Dry mucous membranes, Normal gums, mucosa, palate,. Good dentition. NECK: Supple, with no masses. CV: RRR, no m/r/g. Pulses strong, No peripheral swelling, LUNGS: Mildly diminished to bases, nonproductive, wet cough with deep breathing, 4 LPM O2 ABD: Soft, NT/ND, NBS, no masses or organomegaly. : richards intact with pos output SKIN: Warm, well perfused. No skin rashes or abnormal lesions. lumbar drsg intact and clean, bloody drainage to THUY MSK: No deformities, Normal gait. EXT: No clubbing, cyanosis, or edema. NEURO: CN II-XII grossly intact, Strength 5/5 BLE, No focal deficits. Results & Data Results & Data Vital Signs (Past 12 Hours) Vital Signs Temp Pulse Resp BP BP Pulse Ox O2 Del Method 12/07/24 08:55 98 H 18 101/65 94 Nasal Cannula 12/07/24 08:14 Nasal Cannula 12/07/24 07:00 36.8 C 98 H 20 99/64 L 93 Nasal Cannula 12/07/24 03:25 37.0 C 101 H 18 116/75 94 Nasal Cannula 12/07/24 00:08 37.1 C 97 H 18 130/80 93 CPAP O2 Flow Rate 12/07/24 08:55 4 12/07/24 08:14 4 12/07/24 07:00 12/07/24 03:25 4 12/07/24 00:08 4
--- NOTE | 2024-12-07 12:40 | Orthopedic Progress Note ---
Date of Service December 07, 2024 Assessment & Plan (1) Other spondylosis with radiculopathy, lumbar region: Plan: At this time continue physical therapy monitor her THUY output hopefully discharge home the next few days. Admission and Anticipated Discharge Date Admission Date: December 06, 2024 Subjective Back pain controlled leg pain improved Physical Exam Physical Exam: Patient in the chair at the bedside. She is comfortable. Distracted testing. Results & Data Vital Signs (Past 12 Hours) Vital Signs Temp Pulse Resp BP BP Pulse Ox O2 Del Method 12/07/24 08:55 98 H 18 101/65 94 Nasal Cannula 12/07/24 08:14 Nasal Cannula 12/07/24 07:00 36.8 C 98 H 20 99/64 L 93 Nasal Cannula 12/07/24 03:25 37.0 C 101 H 18 116/75 94 Nasal Cannula O2 Flow Rate 12/07/24 08:55 4 12/07/24 08:14 4 12/07/24 07:00 12/07/24 03:25 4 Queries Orthopedic Spine Obesity: Yes
--- NOTE | 2024-12-07 14:00 | Pharmacy Report ---
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 Will continue with Lantus to cover steroid effects. Will titrate up basal and trial Lantus 50-60 units today. BSGs trending upward at lunch, will tighten CF 12/06 * 59 year old s/p surgery, POD 0 - pharmacy consulted for glycemic management. Postop BSG 180 mg/dL - did receive IV steroids intraoperatively in OR. Per med list, patient took 35 units of home insulin DATA LIBRARIAN. Will give an additional 15 units x 1 of Lantus now to cover steroids. Will add on scale for basal at HS PLAN FOR INPATIENT GLYCEMIC CONTROL: * Hold outpatient oral diabetes medications * Basal insulin * Lantus 40 units daily in AM * Lantus 10-20 units HS * Bolus insulin * NovoLog per scale ACHS or Q6hrs while NPO * Goal Range: Low 110 mg/dL - High 140 mg/dL * Correction Factor: 10 mg/dL/unit * Nutritional / Prandial insulin per carb ratio of 1 unit per 4 grams CHO consumed
[2024-12-08] MEDS: INSULIN ASPART PER UNIT CHARGE SC SCH (00:14)
[2024-12-08 07:45] LABS: Hematocrit (blood only) 31.6 % (37.0-47.0); Hemoglobin 10.6 g/dl (12.0-16.0); Mean Corpuscular Hemoglobin 28.0 pg (25.0-34.0); Mean Corpuscular Volume 83.6 fL (80.0-100.0); Platelet Count 240 K/uL (130-400); RDW Standard Deviation 41.9 fL (36.4-46.3); Red Blood Count 3.78 M/uL (4.20-5.40); White Blood Count 14.71 K/ul (4.8-10.8)
[2024-12-08 08:02] LABS: Anion Gap 5.0 (3-11); Blood Urea Nitrogen 23.0 mg/dl (6-23); Calcium 9.3 mg/dl (8.6-10.3); Carbon Dioxide 34.0 mmol/L (21-32); Chloride 97.0 mmol/L (98-107); Creatinine Clr Calc Pharmacy 78.4 ml/min; Glucose 164.0 mg/dl (70-99(Fasting)); Magnesium 1.8 mg/dl (1.7-2.4); Potassium 4.2 mmol/L (3.5-5.1); Sodium 136.0 mmol/L (136-145)
[2024-12-08] MEDS: LANTUS PER UNIT CHARGE SC SCH (08:23)
--- NOTE | 2024-12-08 09:41 | Pharmacy Report ---
Pharmacy Glycemic Short Note 2 - Date of Service December 08, 2024 - Glycemic Short BSG Results (Last 24 hours): 12/07/24 12/07/24 12/07/24 11:31 16:41 20:02 Glucose POC Glucose 227 H 224 H 278 H 12/08/24 12/08/24 12/08/24 00:05 07:15 07:51 Glucose 164 H POC Glucose 220 H 166 H OUTPATIENT ANTIDIABETIC REGIMEN: * Novolin 70/30 - 70 units bid, metformin 1 gm bid, ozempic ASSESSMENT: 12/08 * Patient received total of 149 units of insulin yesterday of which 60 units were basal insulin * Fasting BSG 166 mg/dL - Will increase and give 60 units basal this AM with scale on for HS * Tightened CF as BSGs yesterday all above goal range 12/07 * Patient received total of 83 units of insulin yesterday, of which 25 units were Lantus and 35 units were 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 Will continue with Lantus to cover steroid effects. Will titrate up basal and trial Lantus 50-60 units today. BSGs trending upward at lunch, will tighten CF 12/06 * 59 year old s/p surgery, POD 0 - pharmacy consulted for glycemic management. Postop BSG 180 mg/dL - did receive IV steroids intraoperatively in OR. 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 Will give an additional 15 units x 1 of Lantus now to cover steroids. Will add on scale for basal at HS PLAN FOR INPATIENT GLYCEMIC CONTROL: * Hold outpatient oral diabetes medications * Basal insulin * Lantus 60 units daily in AM * Lantus 0-15 units HS * Bolus insulin * NovoLog per scale ACHS or Q6hrs while NPO * Goal Range: Low 110 mg/dL - High 140 mg/dL * Correction Factor: 8 mg/dL/unit * Nutritional / Prandial insulin per carb ratio of 1 unit per 4 grams CHO consumed
--- NOTE | 2024-12-08 10:58 | Orthopedic Progress Note ---
Date of Service December 08, 2024 Assessment & Plan (1) Other spondylosis with radiculopathy, lumbar region: Plan: At this time we will continue physical therapy monitor her THUY output anticipate discharge home tomorrow. Admission and Anticipated Discharge Date Admission Date: December 06, 2024 Subjective Back pain is controlled leg symptoms improved. Denies any shortness of breath. Physical Exam Physical Exam: Patient is in the chair at the bedside. Is comfortable discussing the testing. Results & Data Vital Signs (Past 12 Hours) Vital Signs Temp Pulse Pulse Resp BP Pulse Ox O2 Del Method 12/08/24 08:02 36.9 C 83 83 16 126/78 96 Room Air Queries Orthopedic Spine Obesity: Yes
[2024-12-08] MEDS ORDERED: SODIUM PHOSPHATE 3 MMOL/1 ML INFUSION IV STA (11:12)
--- NOTE | 2024-12-08 11:12 | Hospitalist Progress Note ---
Date of Service December 08, 2024 Assessment & Plan (1) Other spondylosis with radiculopathy, lumbar region: Plan: Patient is a 59F with a past medical history significant for HTN, Type II DM, hyperlipidemia, h/o ischemic stroke, tobacco use d/o, ROBBIN, obesity, spinal stenosis lumbar region who presents with post-surgical medical care s/p posterior instrumentation removal at L4-S1, lumbar decompression with bilateral medial facetectomies and foraminotomies T12-L4, posterior spinal fusion T12-L4, posterior segmental instrumentation T12-S1, and interbody fusion L3-L4 with Dr. Lange 12/06 Lumbar spondylosis with radiculopathy s/p laminectomy Acute blood loss anemia: likely dilutional and operative blood loss. Hb today is 10.6. no indication for blood transfusion currently. * POD#2 s/p lumbar decompression and fusion with instrumentation T12-S1 with Dr. Lange. * EBL: 550 ml +; pre-op Hgb 14 * Pain control w/ Tylenol, Oxy, Dilaudid as needed * Wound care per ortho recs * Continue home aspirin per Ortho order-> patient did not stop prior to surgery * Incentive spirometry Q1H while awake * PT/OT when appropriate- ambulates independently at home * Discharge planning- anticipate d/c to home with family support #Hypetension * Goal BP 130/80; now 110's/60's * c/w home Carvedilol, diltiazem cautiously w/ hold parameters. #Diabetes Type II, insulin-dependent * SSI while inpatient with goal bsg 110-140-> may need to adjust insulin while on steroids * A1C 6.8% * Hold home insulin 70/30 and metformin while inpatient-> resume OP #Hypercholesterolemia #H/o stroke ~2013 * Continue home statin * Continue home aspirin per ortho #ROBBIN * Continue home CPAP I spent a total of 35 minutes in direct patient care, including [id number] time with the patient and/or family, reviewing medical records, ordering and reviewing diagnostic tests, and coordinating care with other healthcare providers. This time includes: history taking, physical examination, medical decision making, counseling, ECG interpretation, imaging interpretation, lab interpretation, orders, and education, excluding time spent in the performance of separately billed services. (2) Benign essential hypertension: (3) Controlled diabetes mellitus: (4) Hypercholesterolemia: (5) Sleep apnea: Admission and Anticipated Discharge Date Admission Date: December 06, 2024 Subjective Patient seen and examined at bedside. Patient doing well today, some back pain around surgical site but otherwise doing well. Review of Systems Review of Systems: CONSTITUTIONAL: Patient denies fevers, chills, sweats and weight changes. EYES: Patient denies any visual symptoms. EARS, NOSE, AND THROAT: No difficulties with hearing. No symptoms of rhinitis or sore throat. CARDIOVASCULAR: Patient denies chest pains, palpitations, orthopnea and paroxysmal nocturnal dyspnea. RESPIRATORY: No dyspnea on exertion, no wheezing or cough. GI: No nausea, vomiting, diarrhea, constipation, abdominal pain, hematochezia or melena. : No urinary hesitancy or dribbling. No nocturia or urinary frequency. No abnormal urethral discharge. MUSCULOSKELETAL: back pain NEUROLOGIC: No chronic headaches, no seizures. Patient denies numbness, tingling or weakness. PSYCHIATRIC: Patient denies problems with mood disturbance. No problems with anxiety. ENDOCRINE: No excessive urination or excessive thirst. DERMATOLOGIC: Patient denies any rashes or skin changes. Physical Exam Physical Exam: Gen: A&O 3 NAD HEENT: NCAT, EOMI, not icteric. External ears normal. No rhinorrhea. Moist mucous membranes. Neck: Supple, full range of motion, no observable masses, No meningeal sign. Lungs: No Respiratory distress. CV: RRR, no edema. Abdomen: Soft, nondistended, No rebound tenderness. MSK: No joint swelling, no redness. s/p decompression, THUY drain in place Skin: No rashes, petechiae, lesions. Normal color per patient. Neuro: Normal Gait, Grossly intact. Psych: Appropriate for situation. Results & Data Results & Data Vital Signs (Past 12 Hours) Vital Signs Temp Pulse Pulse Resp BP Pulse Ox O2 Del Method 12/08/24 08:02 36.9 C 83 83 16 126/78 96 Room Air Laboratory Results -personally reviewed, downtrending leukocytosis, stable Hgb, phos of 2 replenished, creatinine at baseline Medications Administered Acetaminophen (Acetaminophen 500 Mg Tab) 1,000 mg PO Q8H PRN PRN Reason: MILD Pain (1,2,3) & Pre PT Stop: 01/05/25 12:54 Last Admin: 12/06/24 18:16 Dose: 1,000 mg Documented By: HELENA Aspirin (Aspirin 81 Mg Ectab) 81 mg PO [facility] Stop: 01/06/25 08:59 Last Admin: 12/08/24 08:26 Dose: 81 mg Documented By: Admin: 12/07/24 08:58 Dose: 81 mg Documented By: GUSTAVO Carvedilol (Carvedilol 12.5 Mg Tab) 12.5 mg PO BID [facility] Stop: 01/05/25 20:59 Last Admin: 12/08/24 08:26 Dose: 12.5 mg Documented By: Admin: 12/07/24 21:12 Dose: 12.5 mg Documented By: Admin: 12/07/24 08:58 Dose: 12.5 mg Documented By: Admin: 12/06/24 21:02 Dose: 12.5 mg Documented By: HAYDEN Diltiazem HCl (Diltiazem Hcl 300 Mg Capcr) 300 mg PO [facility] Stop: 01/06/25 08:59 Last Admin: 12/08/24 08:26 Dose: 300 mg Documented By: Admin: 12/07/24 08:56 Dose: 300 mg Documented By: GUSTAVO Duloxetine HCl (Duloxetine Hcl 20 Mg Cap) 40 mg PO [facility] Stop: 01/06/25 08:59 Last Admin: 12/08/24 08:24 Dose: 40 mg Documented By: Admin: 12/07/24 08:58 Dose: 40 mg Documented By: GUSTAVO Fenofibrate (Fenofibrate Nanocrystallized 145 Mg Tablet) 145 mg PO [facility] Stop: 01/06/25 08:59 Last Admin: 12/08/24 08:24 Dose: 145 mg Documented By: Admin: 12/07/24 08:58 Dose: 145 mg Documented By: GUSTAVO Hydromorphone HCl (Hydromorphone Inj 1 Mg/Ml Syringe) 1 mg IV Q3H PRN PRN Reason: SEVERE Pain (7,8,9,10) Stop: 12/20/24 12:54 Last Admin: 12/07/24 00:05 Dose: 1 mg Documented By: HAYDEN Dexamethasone 6 mg/ Syringe 1.5 mls @ 1 mls/min IV DAILY [facility] Stop: 12/09/24 09:02 Last Admin: 12/08/24 08:23 Dose: 1 mls/min Documented By: Admin: 12/07/24 08:50 Dose: 1 mls/min Documented By: GUSTAVO Cefazolin Sodium (Ancef 2000mg) 2,000 mg in 15 mls @ 3.75 mls/min IV Q8H IMER Stop: 12/14/24 06:29 Last Admin: 12/08/24 10:58 Dose: 3.75 mls/min Documented By: Admin: 12/07/24 22:27 Dose: 3.75 mls/min Documented By: Admin: 12/07/24 14:07 Dose: 3.75 mls/min Documented By: Admin: 12/07/24 06:43 Dose: 3.75 mls/min Documented By: HAYDEN Insulin Aspart (Insulin Aspart Per Unit Charge) 0 units SC ACHS IMER Stop: 01/05/25 13:29 Last Admin: 12/08/24 08:23 Dose: 14 units Documented By: GUSTAVO Co-signed By: DENIZ Admin: 12/07/24 21:13 Dose: 27 units Documented By: FOSTER Co-signed By: FRANK Admin: 12/07/24 17:09 Dose: 22 units Documented By: GUSTAVO Co-signed By: SEDRICK Admin: 12/07/24 11:53 Dose: 16 units Documented By: GUSTAVO Co-signed By: SEDRICK Admin: 12/07/24 08:49 Dose: 16 units Documented By: GUSTAVO Co-signed By: HELENA Admin: 12/06/24 21:00 Dose: 2 units Documented By: HAYDEN Co-signed By: ANNE Admin: 12/06/24 18:15 Dose: 9 units Documented By: HELENA Co-signed By: ANNIE Admin: 12/06/24 14:27 Dose: 8 units Documented By: HELENA Co-signed By: TITO Insulin Glargine (Lantus Per Unit Charge) 0 units SC HS IMER; Protocol Stop: 01/06/25 20:59 Last Admin: 12/07/24 21:13 Dose: 20 units Documented By: FOSTER Co-signed By: FRANK Insulin Glargine (Lantus Per Unit Charge) 60 units SC DAILY IMER Stop: 01/07/25 08:59 Last Admin: 12/08/24 08:23 Dose: 60 units Documented By: GUSTAVO Co-signed By: DENIZ Oxycodone HCl (Oxycodone Hcl Ir 5 Mg Tab (Immediate Release)) 5 - 10 mg PO Q4H PRN PRN Reason: MOD/SEV Pain & Pre PT Stop: 12/20/24 12:54 Last Admin: 12/08/24 06:22 Dose: 5 mg Documented By: Admin: 12/07/24 06:46 Dose: 10 mg Documented By: Admin: 12/06/24 21:01 Dose: 10 mg Documented By: Admin: 12/06/24 14:25 Dose: 10 mg Documented By: HELENA Polyethylene Glycol (Polyethylene (Miralax) 17 Gm Pack) 17 gm PO Q6 IMER Stop: 01/06/25 05:59 Last Admin: 12/08/24 06:17 Dose: 17 gm Documented By: Admin: 12/08/24 00:14 Dose: 17 gm Documented By: Admin: 12/07/24 17:12 Dose: 17 gm Documented By: Admin: 12/07/24 11:53 Dose: 17 gm Documented By: Admin: 12/07/24 05:39 Dose: Not Given Documented By: HAYDEN Pramipexole Dihydrochloride (Pramipexole Dihydrochlo 0.5 Mg Tab) 1 mg PO TID [facility] Stop: 01/05/25 13:59 Last Admin: 12/08/24 08:25 Dose: 1 mg Documented By: Admin: 12/07/24 21:14 Dose: 1 mg Documented By: Admin: 12/07/24 14:07 Dose: 1 mg Documented By: Admin: 12/07/24 08:57 Dose: 1 mg Documented By: Admin: 12/06/24 21:02 Dose: 1 mg Documented By: Admin: 12/06/24 13:53 Dose: 1 mg Documented By: HELENA Pregabalin (Pregabalin 50 Mg Cap) 50 mg PO BID IMER Stop: 01/05/25 20:59 Last Admin: 12/08/24 08:23 Dose: 50 mg Documented By: Admin: 12/07/24 21:11 Dose: 50 mg Documented By: Admin: 12/07/24 08:50 Dose: 50 mg Documented By: Admin: 12/06/24 21:01 Dose: 50 mg Documented By: HAYDEN Quetiapine Fumarate (Quetiapine Fumarate 50 Mg Tabcr) 50 mg PO [facility] Stop: 01/06/25 08:59 Last Admin: 12/08/24 08:26 Dose: 50 mg Documented By: Admin: 12/07/24 08:56 Dose: 50 mg Documented By: GUSTAVO Rosuvastatin Calcium (Rosuvastatin Calcium 20 Mg Tab) 40 mg PO [facility] Stop: 01/06/25 08:59 Last Admin: 12/08/24 08:24 Dose: 40 mg Documented By: Admin: 12/07/24 08:56 Dose: 40 mg Documented By: GUSTAVO Senna/Docusate Sodium (Docusate Sodium/Senna 50/8.6mg Tab) 2 tab PO [facility] Stop: 01/05/25 20:59 Last Admin: 12/07/24 21:11 Dose: 2 tab Documented By: Admin: 12/06/24 21:01 Dose: 2 tab Documented By: HAYDEN
[2024-12-08] MEDS: SODIUM PHOSPHATE 9 MMOL in SODIUM CHLORIDE 0.9% 250 ML IV ONE (11:47)
[2024-12-09 07:10] LABS: Hematocrit (blood only) 31.3 % (37.0-47.0); Hemoglobin 10.3 g/dl (12.0-16.0); Mean Corpuscular Hemoglobin 27.3 pg (25.0-34.0); Mean Corpuscular Volume 83.0 fL (80.0-100.0); Platelet Count 234 K/uL (130-400); RDW Standard Deviation 40.9 fL (36.4-46.3); Red Blood Count 3.77 M/uL (4.20-5.40); White Blood Count 14.91 K/ul (4.8-10.8)
[2024-12-09 07:23] VITALS: BP 151/86; PULSE 88; RESP 16; TEMP 97.7; O2SAT 90
[2024-12-09 07:31] LABS: Anion Gap 6.0 (3-11); Blood Urea Nitrogen 27.0 mg/dl (6-23); Calcium 9.3 mg/dl (8.6-10.3); Carbon Dioxide 31.0 mmol/L (21-32); Chloride 100.0 mmol/L (98-107); Creatinine Clr Calc Pharmacy 75.9 ml/min; Glucose 166.0 mg/dl (70-99(Fasting)); Potassium 4.3 mmol/L (3.5-5.1); Sodium 137.0 mmol/L (136-145)
--- NOTE | 2024-12-09 10:28 | Discharge Summary ---
Date of Service December 09, 2024 Principal Diagnosis Thoracolumbar spondylosis with radiculopathy Discharge Data Allergies Allergy/AdvReac Type Severity Reaction Status Date / Time amoxicillin [From Augmentin] Allergy Severe Hives Verified 12/06/24 07:39 clavulanic acid Allergy Severe Hives Verified 12/06/24 07:39 [From Augmentin] capsaicin Allergy Unknown Rash Verified 12/06/24 06:30 diclofenac Allergy Unknown Rash Verified 12/06/24 06:30 Diclopak Allergy Unknown UNKNOWN Unverified 06/05/16 15:30 nitrofurantoin Allergy Unknown Rash Verified 12/06/24 06:30 trazodone Allergy Unknown Rash Verified 12/06/24 06:30 amitriptyline AdvReac Severe Hallucinations, Verified 12/06/24 06:30 Sleep Walking dulaglutide [From Trulicity] AdvReac Intermediate Pancreatiti Verified 12/06/24 06:30 s lisinopril AdvReac Intermediate Cough Verified 12/06/24 06:30 lorazepam AdvReac Intermediate Agitation Verified 12/06/24 06:30 Consultations 12/06/24 12:55 Consult Hospitalist Routine Procedures Performed Operation Date: 12/06/24 07:45 Actual Procedures p L1-L3 Decompression, T12-S1 Fusion, with Spinal Cord Monitoring(Not Applicable) - David Lange DO s Hardware Removal L4-S1,(Not Applicable) - David Lange DO Ordered Studies 12/06/24 07:45 FL lumbar spine 2-3V Routine Hospital Course (1) Other spondylosis with radiculopathy, lumbar region: Patient went multilevel lumbar decompression fusion tolerated so stayed the orthopedic for postoperative. Posterior postop release progressed appropriately. THUY drain decreasing. Pain controlled. Leg symptoms improved with excellent strength testing. Subsidy discharged home. Discharge orders instructions are on the chart for further review. Total Time Total Time Spent Total Time Spent (In Minutes): 20 minutes Discharge Plan Discharge Items Patient Disposition: Home - Self-Care Reason For Visit: Spondylosis of Lumbosacral Spine at Multiple Level Discharge Diagnosis: Lumbar spondylosis with radiculopathy Activity: As commented below Non-emergency contact: Primary Care Provider Call non-emergency contact if: you have any medication questions Follow-up/Referrals: PCP,NO [Physician] - Diet: Regular Addtl Attending Provider Instructions: ACTIVITY RECOMMENDATIONS: SELF CARE INSTRUCTIONS AFTER THORACIC/LUMBAR FUSIONS 1. You may walk to your tolerance. It is good exercise for your legs and back. Expect some back and intermittent leg aches and pains. 2. You may perform "counter-top" level activities (make a sandwich, debra with a project, etc.). 3. No bending or lifting of more than 10 pounds or back twisting of any nature (roll like a log when turning in bed). 4. You may ride in a car for 20-30 minutes at a time. No driving until after your first visit with your doctor. 5. Frequent changes of position and restricting sitting to 30 minutes at a time will help limit the amount of back spasms and stiffness you may experience. 6. You may discontinue the use of ambulatory aids (cane, crutches, etc.) once your strength and confidence allow. 7. You may drying oven tender the shower and let water strike your incision when you arrive home at least once daily. Do not take a tub bath, sit in a hot tub or go into a swimming pool until after your first recheck in the office. 8. You may resume previous diet. SPECIAL CARE INSTRUCTIONS: VERY IMPORTANT TO READ AND REVIEW A. Your surgical incision has been closed with a cosmetic suture under the skin that will dissolve in about 6 weeks. In 14 days, you can use a pair of clean scissors and cut the suture that is left outside of the skin at the ends of your incision. 1. The small skin tapes can be removed 7 days after surgery if they have not fallen off by that point. 2. You may keep the wound open to air as much as possible to promote healing after post-op day number 5 unless told otherwise by your doctor. 3. If you think the wound looks like it is becoming infected (redness or worsening drainage) and/or you are experiencing fever, chill or worsening back pain and muscle spasms, contact the office so that we may evaluate you as soon as possible. B. Complications are uncommon, but please contact us if you have any signs or symptoms of: 1. wound infection (fever higher than 102.5 degrees F, redness, separation of wound, drainage, or increasing pain from the incision) 2. blood clots in legs (pain, swelling, redness and warmth in legs) 3. urinary tract infection (fever higher than 102.5 degrees F, burning upon urination or increased frequency of urination) 4. nerve problems (inability to walk on your toes or heels, numbness, loss of bowel or bladder control) 5. any other symptoms that concern you C. Please call the office at if you have any concerns or questions about your operation or recovery. D. No smoking! Smoking drastically decreases the chance of a solid fusion. E. Do not take any anti-inflammatory medications (Indocin, Advil, Motrin, Aspirin, Naprosyn, etc.) as these may inhibit the chance of a solid fusion. Tylenol is okay to take for pain. MANAGING PAIN AFTER SPINAL SURGERY 1. Narcotic medication is intended for short-term use and will be provided for surgical pain. Surgical pain usually lasts for a period of 4-6 weeks. Narcotic medication includes Percocet, Vicodin, Darvocet, Tylenol #3 or Lortab. 2. Longer-term pain is more appropriately treated with non-narcotic medication such as Tylenol ES. 3. Muscle spasm is not appropriately treated with narcotics. Muscle relaxers such as Soma, Flexeril or Skelaxin can be used along with Tylenol ES. 4. Remember that we all live with some "aches and pains". This is not unusual or uncommon after an injury or as we get older. a. Back pain is expected and may include muscle spasms for 4 to 6 weeks after surgery. The pain should gradually improve. If the pain worsens for no apparent reason, please contact the office. b. Intermittent leg pain may also be experienced and should not be concerned about unless it worsens for no apparent reason. If so, please contact the office. 5. We will provide appropriate medication within the normal guidelines of their prescribed use. We will also be very cautious and aware of potential abuse and extended duration of patients' medication needs. a. Pain medications are for your comfort and to assist with sleep and rest so that the tissue can heal. They are not provided in order to return to normal activity and should not be used through the day. To do so or worsening pain at night can result from ongoing tissue damage and development of tolerance to the prescribed medicine. 6. Please allow 2-3 days to process refills. Prescriptions will not be mailed but must be picked up at the office. FOLLOW UP VISIT: Keep your scheduled follow-up appointment. Any questions, please call the office at . Pending Studies at Discharge: No Stand-Alone Forms: My [facility], Pain - Opioid Pain Management, Smoking Cessation Medications and DC Order Prescriptions: New tramadol 50 mg tablet 50 mg PO Q6H PRN (Reason: pain, moderate) Qty: 30 0RF oxycodone 5 mg tablet 5 mg PO Q6H PRN (Reason: pain) Qty: 30 0RF Rx Instructions: Oxycodone for severe pain tramadol for mild pain Continued (DME) blood sugar diagnostic Strip See Dose Instructions .ROUTE .MEDSUPPLY Qty: 100 0RF Dose Instruction: As directed Rx Instructions: check BS bid (DME) True Metrix Glucose Test Strip Strip See Rx Instructions .Route Qty: 100 0RF Rx Instructions: check BS bid- [id number] carvedilol [Coreg] 12.5 mg tablet 12.5 mg PO BID Qty: 180 1RF Rx Instructions: must administer with a meal/food diltiazem HCl [Cardizem CD] 300 mg capsule,extended release 24hr 300 mg PO QAM Qty: 90 1RF fenofibrate 160 mg tablet 160 mg PO QAM Qty: 90 1RF (DME) CPAP Supplies See Rx Instructions .Route .MEDSUPPLY Qty: 1 0RF Rx Instructions: As directed acetaminophen [Tylenol] 325 mg tablet 325 - 975 mg PO QID PRN (Reason: Pain) Rx Instructions: DC GMD 09/19- pregabalin [Lyrica] 50 mg capsule 50 mg PO BID Qty: 60 0RF Ozempic 1 mg/dose (4 mg/3 mL) pen injector 1 mg subcut .weekly Qty: 3 5RF Rx Instructions: Friday (DME) pen needle, diabetic [BD Ultra-Fine Short Pen Needle] 31 gauge x 5/16" needle See Dose Instructions .ROUTE .MEDSUPPLY Qty: 100 1RF Dose Instruction: As directed Rx Instructions: use 2-3 x day as directed Dx E11.9 pramipexole 1 mg tablet 1 mg PO TID alcohol swabs [Alcohol Prep Pads] Pads, Medicated 100 pad topical BID MDD 2 Qty: 100 3RF polyethylene glycol 3350 [Miralax] 17 gram/dose Powder 17 g PO DAILY PRN (Reason: Constipation) metformin 500 mg tablet extended release 24 hr 100 mg PO BID cetirizine [Zyrtec] 10 mg tablet 10 mg PO DAILY PRN (Reason: Allergies) rosuvastatin [Crestor] 40 mg tablet 40 mg PO QAM Novolin 70-30 FlexPen U-100 100 unit/mL (70-30) insulin pen 70 unit subcut BID duloxetine 40 mg capsule,delayed release(DR/EC) 40 mg PO QAM quetiapine 50 mg Tablet Extended Release 24 Hr 50 mg PO QAM aspirin 81 mg Tablet 81 mg PO QAM vitamin D3-vitamin K2 125 mcg (5,000 unit)-100 mcg Capsule 1 cap PO QAM Discharge Orders: Discharge Order (Routine); Ordered 12/09/24 Ordered By: David eZng/Other Patient Handouts: DVT Post Op Prevention, Spinal Fusion: Posterior Lumbar Admission Data Admit Date/Time: 12/06/24 10:43 Attending Provider: David Lange Admit Provider: David Lange Primary Care Provider: Varun Bell V. Other Providers: Michel Leary Other Interventions: Discharge Summary Assessment (RN) Last Done: 12/09/24 10:14
--- NOTE | 2024-12-09 21:17 | Hospitalist Progress Note ---
Date of Service December 09, 2024 Assessment & Plan (1) Other spondylosis with radiculopathy, lumbar region: Plan: Patient is a 59F with a past medical history significant for HTN, Type II DM, hyperlipidemia, h/o ischemic stroke, tobacco use d/o, ROBBIN, obesity, spinal stenosis lumbar region who presents with post-surgical medical care s/p posterior instrumentation removal at L4-S1, lumbar decompression with bilateral medial facetectomies and foraminotomies T12-L4, posterior spinal fusion T12-L4, posterior segmental instrumentation T12-S1, and interbody fusion L3-L4 with Dr. Lange 12/06 Lumbar spondylosis with radiculopathy s/p laminectomy Acute blood loss anemia: likely dilutional and operative blood loss. Hb today is 10.6. no indication for blood transfusion currently. * POD#3 s/p lumbar decompression and fusion with instrumentation T12-S1 with Dr. Lange. * EBL: 550 ml +; pre-op Hgb 14 * Pain control w/ Tylenol, Oxy, Dilaudid as needed * Wound care per ortho recs * Continue home aspirin per Ortho order-> patient did not stop prior to surgery * Incentive spirometry Q1H while awake * PT/OT when appropriate- ambulates independently at home * Discharge planning- anticipate d/c to home with family support #Hypetension * Goal BP 130/80; now 110's/60's * c/w home Carvedilol, diltiazem cautiously w/ hold parameters. #Diabetes Type II, insulin-dependent * SSI while inpatient with goal bsg 110-140-> may need to adjust insulin while on steroids * A1C 6.8% * Hold home insulin 70/30 and metformin while inpatient-> resume OP #Hypercholesterolemia #H/o stroke ~2013 * Continue home statin * Continue home aspirin per ortho #ROBBIN * Continue home CPAP I spent a total of 35 minutes in direct patient care, including [id number] time with the patient and/or family, reviewing medical records, ordering and reviewing diagnostic tests, and coordinating care with other healthcare providers. This time includes: history taking, physical examination, medical decision making, counseling, ECG interpretation, imaging interpretation, lab interpretation, orders, and education, excluding time spent in the performance of separately billed services. (2) Benign essential hypertension: (3) Controlled diabetes mellitus: (4) Hypercholesterolemia: (5) Sleep apnea: Admission and Anticipated Discharge Date Admission Date: December 06, 2024 Subjective Patient seen and examined at bedside. Patient doing well and feels ready to go home. Review of Systems Review of Systems: CONSTITUTIONAL: Patient denies fevers, chills, sweats and weight changes. EYES: Patient denies any visual symptoms. EARS, NOSE, AND THROAT: No difficulties with hearing. No symptoms of rhinitis or sore throat. CARDIOVASCULAR: Patient denies chest pains, palpitations, orthopnea and paroxysmal nocturnal dyspnea. RESPIRATORY: No dyspnea on exertion, no wheezing or cough. GI: No nausea, vomiting, diarrhea, constipation, abdominal pain, hematochezia or melena. : No urinary hesitancy or dribbling. No nocturia or urinary frequency. No abnormal urethral discharge. MUSCULOSKELETAL: back pain NEUROLOGIC: No chronic headaches, no seizures. Patient denies numbness, tingling or weakness. PSYCHIATRIC: Patient denies problems with mood disturbance. No problems with anxiety. ENDOCRINE: No excessive urination or excessive thirst. DERMATOLOGIC: Patient denies any rashes or skin changes. Physical Exam Physical Exam: Gen: A&O 3 NAD HEENT: NCAT, EOMI, not icteric. External ears normal. No rhinorrhea. Moist mucous membranes. Neck: Supple, full range of motion, no observable masses, No meningeal sign. Lungs: No Respiratory distress. CV: RRR, no edema. Abdomen: Soft, nondistended, No rebound tenderness. MSK: No joint swelling, no redness. s/p decompression, THUY drain in place Skin: No rashes, petechiae, lesions. Normal color per patient. Neuro: Normal Gait, Grossly intact. Psych: Appropriate for situation. Results & Data Results & Data Laboratory Results -personally reviewed, leukocytosis stable, Hgb stable, creatinine at baseline
== END 2024-12-09 11:45 | disposition home or self-care (01) | DRG 427 ==
LOC: ASU 06:20 → 3N 10:43